=== PATIENT | male | born 1950 | race Caucasian/White ===

== ENCOUNTER 2017-04-02 15:04 | Inpatient (IN) | payer MEDICARE ==
[~2017-04-02] VITALS: Ht 177.8 cm; Wt 104.3 kg
--- NOTE | 2017-04-02 15:30 | NUR ---
[id number]: PT IS 66 YEARS OLD MALE ADMITTED ON 5150 FOR DTS. ACCORDING TO HOLD PT ATTEMPTED SUICIDE BY INGESTING WEED KILLER AND CUTTING BOTH WRISTS. PT HAS MAJOR DEPRESSION AND GALLBLADDER REMOVED. UPON FACE TO FACE ASSESSMENT PT IS A/O X4, ANXIOUS, RESTLESS, COOPERATIVE WITH STAFF. PT LIVES ALONE AND SISTER ASSISTS WITH PT'S FINANCE. PT STATED, " I WANTED TO HURT MYSELF BECAUSE I'M GOING THRU FINANCIAL PROBLEMS. PROVIDED PT WITH PT'S RIGHT BOOKLET. EXPLAINED TO PT MEAL SCHEDULES AND AIR FRESH BREAKS. MRSA DONE. SKIN ASSESSMENT DONE. WOUND CONSULT ORDERED. PT EVALUATION ORDERED. FAMILY NOTIFIED. DR. OCONNOR AND DR. DOBSON NOTIFIED ABOUT NEW ADMISSION. ALL PAPERWORK AND COMPUTER DOCUMENTATION COMPLETED. WILL ENDORSE TO INCOMING NURSE TO DOUBLE CHECK ALL COMPUTER DOCUMENTATION AND PAPERWORK. Addendum: 04/02/17 at 1739 by FENG MCLEOD RN PT DENIES SI/HI/AVH. ADVISEMENT GIVEN AND EXPLAINED TO PT.
[2017-04-02 16:00] VITALS: BP 165/100
[2017-04-02] MEDS ORDERED: MAG HYDROX/AL HYDROX/SIMETH 30 ML UDC PO PRN (16:00)
[2017-04-02] MEDS ORDERED: MAGNESIUM HYDROXIDE 30 ML UDC PO PRN (16:00)
[2017-04-02 21:05] VITALS: BP 150/99
[2017-04-02] MEDS: SERTRALINE HCL 50 MG TABLET PO SCH (21:40)
[2017-04-02] MEDS: TEMAZEPAM 7.5 MG CAPSULE PO PRN (23:36)
[2017-04-03 06:49] LABS: BASOPHILS % (AUTO) 0.4 % (0.0-2.0); EOSINOPHILS # (AUTO) 0.3 /CMM (0.0-0.7); EOSINOPHILS % (AUTO) 4.3 % (0.0-6.0); HEMATOCRIT 39 % (39-51); HEMOGLOBIN 13.5 g/dL (13.5-17.5); LYMPHOCYTES # (AUTO) 1.4 /CMM (0.8-4.8); LYMPHOCYTES % (AUTO) 22.1 % (20.0-44.0); MEAN CORPUSCULAR HEMOGLOBIN 30 PG (26.0-33.0); MEAN CORPUSCULAR HGB CONC 35 g/dl (31.0-36.0); MEAN CORPUSCULAR VOLUME 86 fL (80-96); MONOCYTES # (AUTO) 0.5 /CMM (0.1-1.30); MONOCYTES % (AUTO) 7.2 % (2.0-12.0); NEUTROPHILS # (AUTO) 4.2 /CMM (1.8-8.9); PLATELET COUNT (AUTO) 228 /CMM (150-450); RDW COEFFICIENT OF VARIATION 13.9 (11.5-15.0); RED BLOOD CELL COUNT(AUTO) 4.45 MIL/uL (4.5-6.0); WHITE BLOOD COUNT (AUTO) 6.4 K/uL (4.3-11.0)
[2017-04-03 06:59] LABS: ALBUMIN 3.5 g/dL (3.4-5.0); CALCIUM, SERUM 9.2 mg/dL (8.5-10.1); CREATININE 1.3 mg/dL (0.6-1.3); MAGNESIUM 1.4 mg/dL (1.8-2.4); PHOSPHORUS 3.7 mg/dL (2.5-4.9); POTASSIUM 2.9 mmol/L (3.5-5.1); TOTAL PROTEIN, SERUM 6.9 g/dL (6.4-8.2)
[2017-04-03] MEDS: LORAZEPAM 0.5 MG TABLET PO PRN ×2 (07:28→21:38)
--- NOTE | 2017-04-03 07:28 | NUR ---
[id number]: GAVE ATIVAN 0.5 MG PO DUE TO SEVERE ANXIETY UPON PT REQUEST AND WILL CONTINUE TO MONITOR FOR EFFECTIVENESS OF MEDICATION.
[2017-04-03 08:01] VITALS: BP 181/120
[2017-04-03] MEDS ORDERED: POTASSIUM CHLORIDE 20 MEQ POWDER PACKET PO ONE (10:00)
[2017-04-03] MEDS ORDERED: Magnesium 1GM/D5W 100ML PREMIX 100 ML IV SCH (10:00)
[2017-04-03] MEDS: AMLODIPINE BESYLATE 10 MG TABLET PO SCH (10:24)
[2017-04-03] MEDS: MAGNESIUM OXIDE 400 MG TABLET PO SCH ×2 (10:24→17:10)
--- NOTE | 2017-04-03 10:24 | NUR ---
DUE-OJ-HPSLY: DR. GOODE BALLOON SELLER ORDERED KLOR CON POWDER PKT 60 MEQ ONE TIME, NORVASC 10 MG PO DAILY AND MAG-OXIDE 800 MG BID ONE TIME.
[2017-04-03] MEDS ORDERED: POTASSIUM CHLORIDE 20 MEQ TAB.PRT.SR PO ONE (10:30)
[2017-04-03] MEDS ORDERED: MAGNESIUM OXIDE 400 MG TABLET PO SCH (10:30)
[2017-04-03] MEDS: LOSARTAN POTASSIUM 25 MG TABLET PO SCH (10:37)
--- NOTE | 2017-04-03 10:37 | NUR ---
ZAR-[id number]: DR. DOBSON ORDERED COZAAR 25 MG PO DAILY DUE TO HIGH BLOOD PRESSURE.
--- NOTE | 2017-04-03 11:29 | NUR ---
WOUND CARE CONSULT: PT PRESENTS WITH MULTIPLE LACERATIONS WHICH ARE CLOSED, PRESENT ON ADMISSION INCLUDING LEFT ANTECUBITAL LACERATION (PREVIOUSLY CLOSED WITH SUTURES), LEFT WRIST LACERATION PREVIOUSLY CLOSED WITH SURENDRA. (PT STATES SUTURES USED UNDERNEATH), AND RT WRIST LACERATION, PREVIOUSLY CLOSED WITH SUTURES AND SURENDRA. RECOMMENDATIONS MADE FOR SKIN PROTECTION AND DISCUSSED WITH NURSING STAFF. PT IS AMBULATORY AND CONTINENT. RECOMMEND SURGICAL FOLLOWUP. MD IN AGREEMENT WITH PLAN OF CARE.
--- NOTE | 2017-04-03 11:36 | NUR ---
[id number]; OVERHEAD PAGE VICTORINO FROM [employer] TO DO ECHOCARDIOGRAM ON PT. PENDING RETURN PHONE CALL.
[2017-04-03 16:07] VITALS: BP 148/93
--- NOTE | 2017-04-03 18:01 | NUR ---
[id number]: DR. DOBSON ORDERED PHYSICIAN CONSULT FOR DR. CONNORS TO COME ASSESS PT. NOTIFIED DR. CONNORS ABOUT CONSULTATION FOR THIS PT.
[2017-04-03 20:02] VITALS: BP 179/63
[2017-04-03] MEDS: SERTRALINE HCL 50 MG TABLET PO SCH (21:38)
--- NOTE | 2017-04-03 21:38 | NUR ---
GPS/RN NOTE: [id number] UNABLE TO SLEEP, ANXIOUS, LORAZEPAM 0.5 MG TAB 1 PO GIVEN.
[2017-04-04 08:00] VITALS: BP 148/98
[2017-04-04] MEDS: AMLODIPINE BESYLATE 10 MG TABLET PO SCH (08:51)
[2017-04-04] MEDS: LOSARTAN POTASSIUM 25 MG TABLET PO SCH (08:51)
[2017-04-04] MEDS ORDERED: LOSARTAN POTASSIUM 25 MG TABLET PO ONE (09:00)
[2017-04-04 16:00] VITALS: BP 129/77
--- NOTE | 2017-04-04 19:00 | NUR ---
GPS RN INITIAL NOTE PT RECEIVED IN BED, NO S/S OF RESPIRATORY DISTRESS OR SOB. SAFE ENVIRONMENT PROVIDED FREE OF CLUTTERS. .BED IN LOCKED, LOW POSITION. CALL LIGHT WITHIN EASY REACH. WILL CONTINUE TO MONITOR.
[2017-04-04 20:00] VITALS: BP 158/97
[2017-04-04] MEDS: SERTRALINE HCL 50 MG TABLET PO SCH (21:44)
--- NOTE | 2017-04-05 06:23 | NUR ---
GPS RN CLOSING NOTES PATIENT COMFORTABLY ASLEEP AND EASILY AWAKEN, HEAD OF BED ELEVATED FOR BETTER LUNG EXPANSION TOLERATING ROOM AIR 02 SAT AT 98% NOT APPARENT DISTRESS. AFEBRILE, ALL NURSING CARE NEEDS PROVIDED AND RENDERED, NEEDS ATTENDED AND ANTICIPATED, KEPT CLEAN AND DRY AND COMFORTABLE, GOOD SKIN ARE PROVIDED. FREQUENT VISUAL CHECK DONE FOR SAFETY PER GPS PROTOCOL. SAFE HAZARD FREE ENVIRONMENT PROVIDED. CALL LIGHT WITHIN EASY TO REACH, ON LOW BED AT ALL TIMES TO ENSURE SAFETY, WILL ENDORSE TO THE NEXT SHIFT CONTINUE PLAN OF CARE.
[2017-04-05 08:00] VITALS: BP 140/71
[2017-04-05] MEDS: AMLODIPINE BESYLATE 10 MG TABLET PO SCH (09:35)
[2017-04-05] MEDS: LORAZEPAM 0.5 MG TABLET PO PRN (09:35)
[2017-04-05] MEDS: LOSARTAN POTASSIUM 25 MG TABLET PO SCH (09:36)
[2017-04-05] MEDS: NYSTATIN TOP POWDER 15 GM BOTTLE TP SCH ×2 (12:51→16:21)
[2017-04-05] MEDS: NEOMY SULF/BACITRAC ZN/POLY 15 GM TUBE TP SCH (12:51)
[2017-04-05] MEDS: COD LIVER OIL/ZINC OXIDE 120 GM TUBE TP SCH (12:51)
--- NOTE | 2017-04-05 15:21 | NUR ---
SW met with the patient to check on his status. Pt. states he is doing much better but does not feel yet that he is ready for discharge. SW will follow up
[2017-04-05 16:02] VITALS: BP 131/88
--- NOTE | 2017-04-05 17:05 | NUR ---
Initial Discharge Plan: Pt. resides alone at [address] [place] [address] and wants to return when discharged. SW will follow up with pt's sister, Aubrey Camejo [phone] and psychiatrist and will arrange safe and proper discharge.
[2017-04-05 17:09] VITALS: BP 131/88
[2017-04-05 20:00] VITALS: BP 132/89
[2017-04-05] MEDS: TEMAZEPAM 7.5 MG CAPSULE PO PRN (21:30)
[2017-04-05] MEDS: SERTRALINE HCL 50 MG TABLET PO SCH (21:30)
[2017-04-06 08:00] VITALS: BP 152/98
[2017-04-06] MEDS: AMLODIPINE BESYLATE 10 MG TABLET PO SCH (08:48)
[2017-04-06] MEDS: LOSARTAN POTASSIUM 25 MG TABLET PO SCH (08:48)
[2017-04-06] MEDS: COD LIVER OIL/ZINC OXIDE 120 GM TUBE TP SCH (08:49)
[2017-04-06] MEDS: NEOMY SULF/BACITRAC ZN/POLY 15 GM TUBE TP SCH (08:49)
[2017-04-06] MEDS: NYSTATIN TOP POWDER 15 GM BOTTLE TP SCH ×2 (08:49→17:30)
[2017-04-06 16:18] VITALS: BP 152/102
[2017-04-06 20:00] VITALS: BP 159/92
[2017-04-06] MEDS: LORAZEPAM 0.5 MG TABLET PO PRN (20:06)
--- NOTE | 2017-04-06 21:20 | NUR ---
RECEIVED PT IN THE ROOM. AWAKE. SITTING UP IN CHAIR. HIGH SCHOOL SOCIAL SCIENCE TEACHER FOUND THE HANDLE OF PITCHER CLOSE TO THE SINK. PT TRY TO HIDE IT. ASK THE PT IF HE HAS ANY PLAN TO HURT HIMSELF. PT DENIES SUICIDAL IDEATION AT THIS TIME. ENCOURAGE TO VERBALIZE FEELINGS AND CONCERNS. WILL CONTINUE TO MONITOR FOR SAFETY AND BEHAVIOR [id number].
[2017-04-06] MEDS: SERTRALINE HCL 50 MG TABLET PO SCH (21:27)
[2017-04-06] MEDS: TEMAZEPAM 7.5 MG CAPSULE PO PRN (21:27)
[2017-04-07 09:00] VITALS: BP 111/61
[2017-04-07] MEDS: NYSTATIN TOP POWDER 15 GM BOTTLE TP SCH ×2 (09:21→17:07)
[2017-04-07] MEDS: NEOMY SULF/BACITRAC ZN/POLY 15 GM TUBE TP SCH (09:21)
[2017-04-07] MEDS: COD LIVER OIL/ZINC OXIDE 120 GM TUBE TP SCH (09:21)
[2017-04-07] MEDS: AMLODIPINE BESYLATE 10 MG TABLET PO SCH (09:22)
[2017-04-07] MEDS: LOSARTAN POTASSIUM 25 MG TABLET PO SCH (09:22)
[2017-04-07 16:05] VITALS: BP 141/84
[2017-04-07 20:55] VITALS: BP 149/88
[2017-04-07] MEDS: SERTRALINE HCL 50 MG TABLET PO SCH (21:20)
[2017-04-07] MEDS: TEMAZEPAM 7.5 MG CAPSULE PO PRN (21:20)
--- NOTE | 2017-04-07 21:22 | NUR ---
GPS RN NOTE: PATIENT SELECTIVE ON BODY CHECK AND PICTURE. REFUSED TO HAVE PICTURES TAKEN ON THE BUTTOCK, GROIN AND ABDOMINAL AREA. BUT ALLOWED TO HAVE PICTURE TAKEN ON THE OTHER AREA. EXPLAINED THE RISK AND BENEFITS, PATIENT STILL REFUSED. WILL CONTINUE TO MONITOR [id number] FOR SAFETY
--- NOTE | 2017-04-07 21:25 | NUR ---
GPS RN NOTE: RESTORIL 7.5MG PO GIVEN FOR INABILITY TO SLEEP AND PER PATIENT REQUEST. VITALS XH=097/88 P=65 T=98.3 R=19, WILL CONTINUE TO MONITOR [id number] FOR SAFETY
[2017-04-08 08:00] VITALS: BP 188/90
[2017-04-08] MEDS: LOSARTAN POTASSIUM 25 MG TABLET PO SCH ×2 (09:00→17:28)
[2017-04-08] MEDS: COD LIVER OIL/ZINC OXIDE 120 GM TUBE TP SCH (09:00)
[2017-04-08] MEDS: AMLODIPINE BESYLATE 10 MG TABLET PO SCH (09:00)
[2017-04-08] MEDS: NYSTATIN TOP POWDER 15 GM BOTTLE TP SCH ×2 (09:01→17:28)
[2017-04-08] MEDS: NEOMY SULF/BACITRAC ZN/POLY 15 GM TUBE TP SCH (09:02)
[2017-04-08] MEDS ORDERED: hydrALAZINE HCL 25 MG TABLET PO PRN (12:30)
--- NOTE | 2017-04-08 15:22 | NUR ---
APOLLO met with the patient and he reports that he is doing much better but does not feel yet that he is ready to go home. APOLLO will follow up
--- NOTE | 2017-04-08 15:24 | NUR ---
APOLLO spoke with Aubrey Camejo [phone] who was concerned about the patients condition and had a very long conversation with the SW stating she will need time to make his house more accessible for the patient as pt. is not able to ambulate well. Aubrey Camejo stated that pt. is able to "fool everyone" but is not doing well and hasn't been doing well. APOLLO will speak with the doctor about all the new updates.
[2017-04-08 16:00] VITALS: BP 156/92
[2017-04-08 20:17] VITALS: BP 157/100
[2017-04-08] MEDS: SERTRALINE HCL 50 MG TABLET PO SCH (21:40)
[2017-04-08] MEDS: TEMAZEPAM 7.5 MG CAPSULE PO PRN (21:40)
[2017-04-09 08:00] VITALS: BP 155/97
[2017-04-09] MEDS ORDERED: HYDROCHLOROTHIAZIDE 25 MG TABLET PO SCH (09:00)
[2017-04-09] MEDS: AMLODIPINE BESYLATE 10 MG TABLET PO SCH (09:08)
[2017-04-09] MEDS: LOSARTAN POTASSIUM 25 MG TABLET PO SCH ×2 (09:11→17:00)
[2017-04-09] MEDS: COD LIVER OIL/ZINC OXIDE 120 GM TUBE TP SCH (09:12)
[2017-04-09] MEDS: NYSTATIN TOP POWDER 15 GM BOTTLE TP SCH ×2 (09:12→17:00)
[2017-04-09] MEDS: NEOMY SULF/BACITRAC ZN/POLY 15 GM TUBE TP SCH (09:13)
--- NOTE | 2017-04-09 14:13 | NUR ---
Pt's sister Aubrey Camejo [phone] called and left a voicemail for the social studies teacher, concerned that the patient has been calling friends to have them come and pick him up. She was concerned and wanted a Head CT Scan to rule out any possible brain issues as pt. has been having slurred speech for the last 6 months and has been acting very bizarre. Aubrey Camejo also stated that pt has been having issues with his memory and thinking. She is concerned that pt. will commit suicide if she is discharged to early. SW notified MD and MD agreed to order a neuro consult and to keep him at least until the end of this week for more stabilization. Pt's sister was notified.
[2017-04-09 16:00] VITALS: BP 150/92
--- NOTE | 2017-04-09 16:06 | NUR ---
RN-CO: PER RAIL LOADER REPORT, THEY FOUND A BROKEN HANDLE OF PITCHER WITH SHARP EDGES INSIDE. PER REPORT, PATIENT PURPOSELY HIDE IT. PT REFUSED TO ANSWER QUESTIONS. WE WILL NOTIFY DR OCONNOR REGARDING THE INCIDENT AND WE WILL SUGGEST THAT A 1:1 SITTER WILL BE BENEFICIAL FOR HIS SAFETY.
[2017-04-09 19:46] VITALS: BP 175/104
[2017-04-09 20:30] VITALS: BP 145/90
[2017-04-09] MEDS: SERTRALINE HCL 50 MG TABLET PO SCH (22:14)
[2017-04-09] MEDS: TEMAZEPAM 7.5 MG CAPSULE PO PRN (22:14)
[2017-04-10] MEDS: LORAZEPAM 0.5 MG TABLET PO PRN (01:25)
[2017-04-10 07:28] LABS: BASOPHILS % (AUTO) 0.3 % (0.0-2.0); EOSINOPHILS # (AUTO) 0.2 /CMM (0.0-0.7); EOSINOPHILS % (AUTO) 3.3 % (0.0-6.0); HEMATOCRIT 40 % (39-51); HEMOGLOBIN 13.7 g/dL (13.5-17.5); LYMPHOCYTES # (AUTO) 1.4 /CMM (0.8-4.8); LYMPHOCYTES % (AUTO) 19.3 % (20.0-44.0); MEAN CORPUSCULAR HEMOGLOBIN 30 PG (26.0-33.0); MEAN CORPUSCULAR HGB CONC 35 g/dl (31.0-36.0); MEAN CORPUSCULAR VOLUME 88 fL (80-96); MONOCYTES # (AUTO) 0.5 /CMM (0.1-1.30); MONOCYTES % (AUTO) 6.8 % (2.0-12.0); NEUTROPHILS # (AUTO) 5.3 /CMM (1.8-8.9); NEUTROPHILS % (AUTO) 70.3 % (43.0-81.0); PLATELET COUNT (AUTO) 255 /CMM (150-450); RDW COEFFICIENT OF VARIATION 14.3 (11.5-15.0); RED BLOOD CELL COUNT(AUTO) 4.54 MIL/uL (4.5-6.0); WHITE BLOOD COUNT (AUTO) 7.5 K/uL (4.3-11.0)
[2017-04-10 07:56] LABS: CALCIUM, SERUM 9.2 mg/dL (8.5-10.1); CREATININE 1.2 mg/dL (0.6-1.3); POTASSIUM 3.9 mmol/L (3.5-5.1)
[2017-04-10 08:00] VITALS: BP 159/100
[2017-04-10] MEDS: AMLODIPINE BESYLATE 10 MG TABLET PO SCH (08:35)
[2017-04-10] MEDS: LOSARTAN POTASSIUM 25 MG TABLET PO SCH ×2 (08:35→17:21)
[2017-04-10] MEDS: NEOMY SULF/BACITRAC ZN/POLY 15 GM TUBE TP SCH (08:37)
[2017-04-10] MEDS: NYSTATIN TOP POWDER 15 GM BOTTLE TP SCH ×2 (08:37→17:20)
[2017-04-10] MEDS: COD LIVER OIL/ZINC OXIDE 120 GM TUBE TP SCH (08:38)
[2017-04-10] MEDS: HYDROCHLOROTHIAZIDE 25 MG TABLET PO SCH (09:51)
[2017-04-10] MEDS: hydrALAZINE HCL 25 MG TABLET PO SCH ×2 (09:52→17:21)
--- NOTE | 2017-04-10 15:44 | NUR ---
APOLLO received a voicemail from Aubrey Camejo [phone], pt's sister, who is interested in placing the patient at a correction for short term, until his house is fixed. APOLLO called to speak with Aubrey Camejo and notified her that the patient won't be leaving the hospital and will be at the hospital at least until Saturday, and APOLLO will try to find an accepting facility that will be willing to accept the patient short term with private 1:1 caregiver.
[2017-04-10 16:16] VITALS: BP 164/99
[2017-04-10] MEDS: risperiDONE 1 MG TABLET PO SCH ×2 (17:24→20:31)
[2017-04-10 19:53] VITALS: BP 139/73
[2017-04-10] MEDS: SERTRALINE HCL 50 MG TABLET PO SCH (21:42)
[2017-04-10] MEDS: TEMAZEPAM 7.5 MG CAPSULE PO PRN (22:50)
[2017-04-11 08:00] VITALS: BP 161/88
[2017-04-11] MEDS: LOSARTAN POTASSIUM 25 MG TABLET PO SCH ×2 (08:47→17:13)
[2017-04-11] MEDS: AMLODIPINE BESYLATE 10 MG TABLET PO SCH (08:47)
[2017-04-11] MEDS: HYDROCHLOROTHIAZIDE 25 MG TABLET PO SCH (08:48)
[2017-04-11] MEDS: risperiDONE 1 MG TABLET PO SCH ×2 (08:48→20:17)
[2017-04-11] MEDS: hydrALAZINE HCL 25 MG TABLET PO SCH ×2 (08:48→17:13)
[2017-04-11] MEDS: NEOMY SULF/BACITRAC ZN/POLY 15 GM TUBE TP SCH (08:53)
[2017-04-11] MEDS: COD LIVER OIL/ZINC OXIDE 120 GM TUBE TP SCH (08:53)
[2017-04-11] MEDS: NYSTATIN TOP POWDER 15 GM BOTTLE TP SCH ×2 (08:53→17:15)
--- NOTE | 2017-04-11 12:41 | NUR ---
Pt. was referred to [facility] [address] [place] [address] , [facility] [place] [address], [place] [id number] , and [place] [address]: . Will follow up
[2017-04-11 16:00] VITALS: BP 129/70
[2017-04-11 20:00] VITALS: BP 118/76
[2017-04-11] MEDS: SERTRALINE HCL 50 MG TABLET PO SCH (21:23)
--- NOTE | 2017-04-11 23:00 | NUR ---
GPS RN NOTES PATIENT REQUESTED FOR A SLEEPING PILL. AT AROUND 2100 RN GAVE HIM THE SLEEPING PILL, PATIENT SAID HE WOULD TAKE IT LATER. A COUPLE OF HOUR LATER RN OFFERED THE RESTORIL AGAIN, PATIENT DECLINED IT SAYING HE TOOK THE PILLS YESTERDAY AND HE KNOCKED OUT. RESTORIL WASTED.
[2017-04-12 08:00] VITALS: BP 130/85
[2017-04-12] MEDS: LOSARTAN POTASSIUM 25 MG TABLET PO SCH ×2 (09:05→16:10)
[2017-04-12] MEDS: hydrALAZINE HCL 25 MG TABLET PO SCH ×2 (09:06→16:10)
[2017-04-12] MEDS: HYDROCHLOROTHIAZIDE 25 MG TABLET PO SCH (09:06)
[2017-04-12] MEDS: risperiDONE 1 MG TABLET PO SCH ×2 (09:06→20:04)
[2017-04-12] MEDS: AMLODIPINE BESYLATE 10 MG TABLET PO SCH (09:07)
[2017-04-12] MEDS: COD LIVER OIL/ZINC OXIDE 120 GM TUBE TP SCH (09:09)
[2017-04-12] MEDS: NEOMY SULF/BACITRAC ZN/POLY 15 GM TUBE TP SCH (09:10)
[2017-04-12] MEDS: NYSTATIN TOP POWDER 15 GM BOTTLE TP SCH ×2 (09:10→16:11)
--- NOTE | 2017-04-12 14:50 | NUR ---
Per Phani from [facility] [address] [place] [address] , pt could be admitted if sister, Aubrey Camejo [phone] agrees to pay for a private sitter for at least 16 hours a day. APOLLO spoke with Aubrey Camejo and she agreed. APOLLO provided information to Phani and Phani said the facility will contact the sister to arrange payment. APOLLO will follow up
[2017-04-12 16:32] VITALS: BP 114/68
[2017-04-12 20:00] VITALS: BP 101/73
[2017-04-12] MEDS: SERTRALINE HCL 50 MG TABLET PO SCH (21:09)
[2017-04-13 08:27] VITALS: BP 116/72
[2017-04-13] MEDS: HYDROCHLOROTHIAZIDE 25 MG TABLET PO SCH (09:17)
[2017-04-13] MEDS: LOSARTAN POTASSIUM 25 MG TABLET PO SCH ×2 (09:18→17:36)
[2017-04-13] MEDS: risperiDONE 1 MG TABLET PO SCH ×2 (09:18→21:34)
[2017-04-13] MEDS: hydrALAZINE HCL 25 MG TABLET PO SCH ×2 (09:18→17:36)
[2017-04-13] MEDS: AMLODIPINE BESYLATE 10 MG TABLET PO SCH (09:18)
[2017-04-13] MEDS: NEOMY SULF/BACITRAC ZN/POLY 15 GM TUBE TP SCH (09:22)
[2017-04-13] MEDS: COD LIVER OIL/ZINC OXIDE 120 GM TUBE TP SCH (09:22)
[2017-04-13] MEDS: NYSTATIN TOP POWDER 15 GM BOTTLE TP SCH ×2 (09:22→17:41)
[2017-04-13 16:10] VITALS: BP 140/84
[2017-04-13 20:00] VITALS: BP 110/54
[2017-04-13 21:00] VITALS: BP 112/65
[2017-04-13] MEDS: SERTRALINE HCL 50 MG TABLET PO SCH (21:34)
--- NOTE | 2017-04-14 07:02 | NUR ---
RN GPS NOTES PT. REMAINED SITTER BED SIDE FOR SAFETY NO ACUTE DISTRESS NOTED , DENIES ANY DISCOMFORT AT THIS TIME , WILL ENDORSE TO NEXT SHIFT FOR CONTINUITY OF CARE .
[2017-04-14 08:08] VITALS: BP 141/78
[2017-04-14] MEDS: HYDROCHLOROTHIAZIDE 25 MG TABLET PO SCH (08:17)
[2017-04-14] MEDS: AMLODIPINE BESYLATE 10 MG TABLET PO SCH (08:17)
[2017-04-14] MEDS: hydrALAZINE HCL 25 MG TABLET PO SCH ×2 (08:17→16:55)
[2017-04-14] MEDS: LOSARTAN POTASSIUM 25 MG TABLET PO SCH ×2 (08:18→16:56)
[2017-04-14] MEDS: risperiDONE 1 MG TABLET PO SCH ×2 (08:18→21:30)
[2017-04-14] MEDS: NEOMY SULF/BACITRAC ZN/POLY 15 GM TUBE TP SCH (08:34)
[2017-04-14] MEDS: COD LIVER OIL/ZINC OXIDE 120 GM TUBE TP SCH (08:34)
[2017-04-14] MEDS: NYSTATIN TOP POWDER 15 GM BOTTLE TP SCH ×2 (08:34→16:56)
--- NOTE | 2017-04-14 14:34 | NUR ---
RN NOTES SPOKE TO DR. MENDIOLA AND FOLLOWED UP REGARDING THE WILMER WRIST SURENDRA AND LAC STITCHES. WHEN TO BE REMOVE. MD STATED THAT HE WILL COME LATER TO TAKE A LOOK AT IT.
[2017-04-14 16:06] VITALS: BP 130/68
[2017-04-14] MEDS: LORAZEPAM 0.5 MG TABLET PO PRN (16:54)
--- NOTE | 2017-04-14 17:00 | NUR ---
RN NOTES PT AGREED TO TAKE A SHOWER, AND AFTER HE TOOK HIS SHOWER NOTED THAT HE BECAME ANXIOUS, PRN ATIVAN GIVEN ORDERED. WILL CONTINUE TO MONITOR.
[2017-04-14 20:00] VITALS: BP 127/77
[2017-04-14] MEDS: SERTRALINE HCL 50 MG TABLET PO SCH (21:30)
--- NOTE | 2017-04-15 05:47 | NUR ---
RN GPS NOTES PT. REMAINED SITTER BED SIDE FOR SAFETY NO ACUTE DISTRESS NOTED , DENIES ANY DISCOMFORT AT THIS TIME , WILL CONTINUE TO MONITOR .
--- NOTE | 2017-04-15 07:24 | NUR ---
RN GPS NOTES PT. SLEPT 7.5 HOURS , DENIES SI HI AT THIS TIME, NO ACUTE DISTRESS NOTED, ENDORSE TO NEXT SHIFT FOR CONTINUITY OF CARE .
[2017-04-15 08:00] VITALS: BP 118/80
[2017-04-15] MEDS: hydrALAZINE HCL 25 MG TABLET PO SCH ×2 (08:13→16:35)
[2017-04-15] MEDS: LOSARTAN POTASSIUM 25 MG TABLET PO SCH ×2 (08:13→16:35)
[2017-04-15] MEDS: AMLODIPINE BESYLATE 10 MG TABLET PO SCH (08:14)
[2017-04-15] MEDS: HYDROCHLOROTHIAZIDE 25 MG TABLET PO SCH (08:14)
[2017-04-15] MEDS: risperiDONE 1 MG TABLET PO SCH ×2 (08:14→21:44)
[2017-04-15] MEDS: NEOMY SULF/BACITRAC ZN/POLY 15 GM TUBE TP SCH (08:17)
[2017-04-15] MEDS: COD LIVER OIL/ZINC OXIDE 120 GM TUBE TP SCH (08:17)
[2017-04-15] MEDS: NYSTATIN TOP POWDER 15 GM BOTTLE TP SCH ×2 (08:17→17:16)
--- NOTE | 2017-04-15 10:12 | NUR ---
APOLLO followed up with Phani from [facility] [address] [place] [address] and per Phani, pt's sister, Aubrey Camejo [phone] has not returned their call to arrange for a private sitter. Phani said he will follow up with the facility and will notify the social insurance specialist about what's next.
--- NOTE | 2017-04-15 12:54 | NUR ---
Ana Lilia from [facility] [address] [place] [address] came to see the patient as she was provided a referral and she said they can't accept the patient as they don't provide sitters and pt. is high risk.
[2017-04-15 16:00] VITALS: BP 123/74
[2017-04-15 19:31] VITALS: BP 111/72
[2017-04-15] MEDS: SERTRALINE HCL 50 MG TABLET PO SCH (21:44)
--- NOTE | 2017-04-16 06:42 | NUR ---
RN GPS NOTES PT. , DENIES SI HI AT THIS TIME NO ACUTE DISTRESS NOTED, ATTENDED ALL NEEDS ANTICIPATED ENDORSE TO NEXT SHIFT FOR CONTINUITY OF CARE .
[2017-04-16 08:00] VITALS: BP 112/76
[2017-04-16] MEDS: LOSARTAN POTASSIUM 25 MG TABLET PO SCH ×2 (08:57→17:11)
[2017-04-16] MEDS: AMLODIPINE BESYLATE 10 MG TABLET PO SCH (08:58)
[2017-04-16] MEDS: HYDROCHLOROTHIAZIDE 25 MG TABLET PO SCH (08:58)
[2017-04-16] MEDS: hydrALAZINE HCL 25 MG TABLET PO SCH ×2 (09:04→17:13)
[2017-04-16] MEDS: NEOMY SULF/BACITRAC ZN/POLY 15 GM TUBE TP SCH (09:07)
[2017-04-16] MEDS: NYSTATIN TOP POWDER 15 GM BOTTLE TP SCH ×2 (09:07→17:14)
[2017-04-16] MEDS: risperiDONE 1 MG TABLET PO SCH ×2 (09:09→20:40)
[2017-04-16] MEDS: COD LIVER OIL/ZINC OXIDE 120 GM TUBE TP SCH (09:10)
--- NOTE | 2017-04-16 12:56 | NUR ---
Pt. was also referred and [facility] [address] [place] [address] per January from admission due to patient being high risk. Addendum: 04/22/17 at 1237 by KELSEY BUSTILLOS [facility] *
[2017-04-16 16:00] VITALS: BP 137/78
--- NOTE | 2017-04-16 19:19 | NUR ---
GPS/RN NOTE: PATIENT AWAKE, ALERT, ORIENTED X3, SITTING ON THE CHAIR. HAS 1:1 SITTER FOR SAFETY. NO APPARENT DISTRESS NOTED.
[2017-04-16 20:46] VITALS: BP 129/74
[2017-04-16] MEDS: SERTRALINE HCL 50 MG TABLET PO SCH (23:29)
[2017-04-17 08:00] VITALS: BP 150/84
[2017-04-17] MEDS: LOSARTAN POTASSIUM 25 MG TABLET PO SCH ×2 (08:54→17:32)
[2017-04-17] MEDS: AMLODIPINE BESYLATE 10 MG TABLET PO SCH (08:54)
[2017-04-17] MEDS: hydrALAZINE HCL 25 MG TABLET PO SCH ×2 (08:55→17:32)
[2017-04-17] MEDS: HYDROCHLOROTHIAZIDE 25 MG TABLET PO SCH (08:55)
[2017-04-17] MEDS: risperiDONE 1 MG TABLET PO SCH ×2 (08:58→21:24)
[2017-04-17] MEDS: NYSTATIN TOP POWDER 15 GM BOTTLE TP SCH ×2 (09:08→17:33)
[2017-04-17] MEDS: NEOMY SULF/BACITRAC ZN/POLY 15 GM TUBE TP SCH (09:08)
[2017-04-17] MEDS: COD LIVER OIL/ZINC OXIDE 120 GM TUBE TP SCH (09:09)
--- NOTE | 2017-04-17 09:54 | NUR ---
APOLLO spoke with pt's sister, Aubrey Camejo [phone] who said she will call the agency to arrange the 24 hour sitter, so that the patient can be discharged to [address] [address] today. APOLLO spoke with Phani from the facility and they are able to accept as soon as the arrangement is done.
[2017-04-17] MEDS: ACETAMINOPHEN 325 MG TABLET PO PRN (11:18)
--- NOTE | 2017-04-17 15:42 | NUR ---
APOLLO received a call from Phani from [facility] [address] [place] [address] and pt. cannot be discharged there today. Per Phani, facility is going through a survey and will not be able to accept the patient now. APOLLO will follow up .
--- NOTE | 2017-04-17 15:44 | NUR ---
Phani is working with Skip Gaxiola [place] [id number]: to make arrangements for pt. to be accepted. Skip gaxiola is working with the agency to arrange for 24 hour sitter in order to accept the patient.
--- NOTE | 2017-04-17 15:45 | NUR ---
Denise from [facility] [address] [place] [address] said pt. cannot be accepted due to being high risk.
--- NOTE | 2017-04-17 15:51 | NUR ---
Pt. was referred to [place] [address] [place] [address] . Facility is arranging for a sitter and if everything works out, pt can be discharged there today or tomorrow.
[2017-04-17 16:00] VITALS: BP 125/73
[2017-04-17 20:04] VITALS: BP 152/93
[2017-04-17] MEDS: SERTRALINE HCL 50 MG TABLET PO SCH (21:20)
[2017-04-17 22:00] VITALS: BP 130/80
--- NOTE | 2017-04-18 06:49 | NUR ---
RN GPS NOTES PT. , DENIES SI HI AT THIS TIME NO ACUTE DISTRESS NOTED, ATTENDED ALL NEEDS ANTICIPATED ,, REMAINED 1:1 SITTER AT BED SIDE FOR SAFETY, ENDORSE TO NEXT SHIFT FOR CONTINUITY OF CARE .
[2017-04-18 08:00] VITALS: BP 130/72
[2017-04-18] MEDS: HYDROCHLOROTHIAZIDE 25 MG TABLET PO SCH (08:18)
[2017-04-18] MEDS: risperiDONE 1 MG TABLET PO SCH ×2 (08:19→22:05)
[2017-04-18] MEDS: hydrALAZINE HCL 25 MG TABLET PO SCH ×2 (08:19→16:26)
[2017-04-18] MEDS: AMLODIPINE BESYLATE 10 MG TABLET PO SCH (08:20)
[2017-04-18] MEDS: LOSARTAN POTASSIUM 25 MG TABLET PO SCH ×2 (08:30→16:26)
[2017-04-18] MEDS: NEOMY SULF/BACITRAC ZN/POLY 15 GM TUBE TP SCH (09:05)
[2017-04-18] MEDS: NYSTATIN TOP POWDER 15 GM BOTTLE TP SCH ×2 (09:05→16:26)
[2017-04-18] MEDS: COD LIVER OIL/ZINC OXIDE 120 GM TUBE TP SCH (09:09)
--- NOTE | 2017-04-18 11:04 | NUR ---
DR. OCONNOR GAVE AN ORDER TO D/C HOLD AND D/C TO [facility]. PT. WITHOUT DISTRESS, DENIES SUICIDAL AND HOMICIDAL. TO FOLLOW UP WITH PSYCH AND MEDICAL DOCTORS.
[2017-04-18] MEDS: ACETAMINOPHEN 325 MG TABLET PO PRN (11:44)
--- NOTE | 2017-04-18 11:45 | NUR ---
SUPREME COURT JUSTICE-NOTES PATIENT C/O HEADACHE REQUESTING FOR TYLENOL, TYLENOL 650MG P.O GIVEN ORDERED. WILL CONT. 1:1 MONITORING FOR SAFETY.
--- NOTE | 2017-04-18 11:45 | NUR ---
APOLLO followed up with Rashel from [address] [address] and they still have no confirmation from the caregiving agency.
--- NOTE | 2017-04-18 11:46 | NUR ---
APLOLO spoke with Phani from [facility] [address] [place] [address] and if pt. does not get accepted anywhere and stays in the hospital over the weekend, [facility] will most likely accept him on Saturday.
--- NOTE | 2017-04-18 11:47 | NUR ---
APOLLO spoke with Aubrey Camejo [phone] who is notified of all the new updates and is waiting to hear confirmation about which facility the patient is able to discharge to.
--- NOTE | 2017-04-18 13:02 | NUR ---
Pt. was also referred to [facility] [address], [place] [address] . Geo from the facility will be in touch with a decision. Addendum: 04/22/17 at 1236 by KELSEY BUSTILLOS La from the facility notified that pt. cannot be accepted to their facility.
--- NOTE | 2017-04-18 14:01 | NUR ---
APOLLO spoke to La from [facility] ([address], [place] [address] ) who stated that they cannot accept the patient right now due to no bed availability and that SW may follow up next week to see if there is availability however, she wasn't sure if there will be.
--- NOTE | 2017-04-18 14:14 | NUR ---
DR. OCONNOR RESCINDED THE D/C ORDER BECAUSE THE FACILITY IS NOT ACCEPTING HIM TODAY. AND DR. GABRIEL PLACED PT. ON 30 DAY HOLD.
[2017-04-18 16:00] VITALS: BP 147/86
[2017-04-18 20:00] VITALS: BP 126/92
[2017-04-18] MEDS: TEMAZEPAM 7.5 MG CAPSULE PO PRN (22:06)
[2017-04-18] MEDS: SERTRALINE HCL 50 MG TABLET PO SCH (22:06)
[2017-04-19 08:00] VITALS: BP 120/77
[2017-04-19] MEDS: HYDROCHLOROTHIAZIDE 25 MG TABLET PO SCH (08:23)
[2017-04-19] MEDS: risperiDONE 1 MG TABLET PO SCH ×2 (08:23→21:15)
[2017-04-19] MEDS: LOSARTAN POTASSIUM 25 MG TABLET PO SCH ×2 (08:23→16:16)
[2017-04-19] MEDS: hydrALAZINE HCL 25 MG TABLET PO SCH ×2 (08:23→16:16)
[2017-04-19] MEDS: AMLODIPINE BESYLATE 10 MG TABLET PO SCH (08:24)
[2017-04-19] MEDS: NYSTATIN TOP POWDER 15 GM BOTTLE TP SCH (08:31)
[2017-04-19] MEDS: NEOMY SULF/BACITRAC ZN/POLY 15 GM TUBE TP SCH (08:31)
[2017-04-19] MEDS: COD LIVER OIL/ZINC OXIDE 120 GM TUBE TP SCH (08:32)
--- NOTE | 2017-04-19 09:37 | NUR ---
SHANKAR from [facility] ([address] [place] [address] ) stated that he has called the caregiving agency and left a message for them. He will follow up and let the school social worker know if they are able to sort out the caregiving issue.
--- NOTE | 2017-04-19 12:20 | NUR ---
Per Phani from [facility] ([address], [place] )) they are able to accept the patient Saturday after 5pm as they have surveyors. Phani to contact the patient's sister Aubrey Camejo ([phone]) to coordinate caregiving services. APOLLO tried to contact the patient's sister to notify her but she did not answer and person who answered the phone (Evonne) stated she will pass on APOLLO's call back details.
--- NOTE | 2017-04-19 12:51 | NUR ---
APOLLO spoke to the patient's sister (zack Camejo ([phone]) and informed her that [facility] ([address] [place] [address] ) is able to take the patient Saturday after 5pm and that Phani from the facility will be contacting her to discuss the caregiving. She stated she is agreeable with the plan to discharge the patient there. APOLLO informed her that they will also be referring patient to other facilities in the case that [facility] falls through.
--- NOTE | 2017-04-19 13:30 | NUR ---
decontamination worker faxed initial review packet to: [facility] ( / ) [address] [place] [address] Rogelio Amado (phone: [phone] ) [address] [facility] [address] [facility] (phone: [phone]/ ) [address] [place] [address] decontamination worker will follow-up. Addendum: 04/19/17 at 1422 by GEOVANNY BUSTILLOS [facility] )
--- NOTE | 2017-04-19 13:37 | NUR ---
pattern worker spoke to Inge from [facility] ( / ) [address] [place] [address] and stated that they could not accept the patient as they don not have any male beds available.
--- NOTE | 2017-04-19 15:53 | NUR ---
medical case worker spoke to Stephon stewart [facility] ( / ) [address] [place] [address] who stated that they are unable to accept the patient at the moment due to his suicidal ideations and cannot accommodate a 1:1 sitter.
--- NOTE | 2017-04-19 15:55 | NUR ---
grey roll worker spoke to Shivani from [facility] (phone: [phone]/ ) [address] [place] [address] who stated that they could not accept the patient at the moment as they do not have any male beds available. Shivani stated that she would follow-up on Saturday and notify executive secretary social welfare if a bed became available. However, she stated that there is no guarantee that they would accept the patient and at the moment might not be able to accommodate a 1:1 sitter. grey roll worker will follow-up.
[2017-04-19 16:05] VITALS: BP 124/74
[2017-04-19] MEDS: ACETAMINOPHEN 325 MG TABLET PO PRN (16:16)
--- NOTE | 2017-04-19 16:17 | NUR ---
GPS RN: TYLENOL 650MG ADMINISTERED PER PATIENT'S REQUEST FOR C/O HEADACHE 03/23. NOT IN DISTRESS, VSS, CONTINUE TO MONITOR.
[2017-04-19 20:00] VITALS: BP 117/70
[2017-04-19] MEDS: SERTRALINE HCL 50 MG TABLET PO SCH (21:15)
[2017-04-20 08:00] VITALS: BP 123/76
[2017-04-20] MEDS: risperiDONE 1 MG TABLET PO SCH ×2 (08:37→21:19)
[2017-04-20] MEDS: HYDROCHLOROTHIAZIDE 25 MG TABLET PO SCH (08:37)
[2017-04-20] MEDS: LOSARTAN POTASSIUM 25 MG TABLET PO SCH ×2 (08:37→16:36)
[2017-04-20] MEDS: AMLODIPINE BESYLATE 10 MG TABLET PO SCH (08:37)
[2017-04-20] MEDS: hydrALAZINE HCL 25 MG TABLET PO SCH ×2 (08:38→16:36)
[2017-04-20] MEDS: NEOMY SULF/BACITRAC ZN/POLY 15 GM TUBE TP SCH (08:40)
[2017-04-20] MEDS: ACETAMINOPHEN 325 MG TABLET PO PRN (15:16)
--- NOTE | 2017-04-20 15:18 | NUR ---
GPS RN: TYLENOL 650MG ADMINISTERED PER PATIENT'S REQUEST FOR C/O HEADACHE 03/23. PATIENT IS NOT IN DISTRESS, VSS, CONTINUE TO MONITOR.
[2017-04-20 16:00] VITALS: BP 111/68
[2017-04-20 20:25] VITALS: BP 123/70
[2017-04-20] MEDS: SERTRALINE HCL 50 MG TABLET PO SCH (21:26)
[2017-04-20] MEDS: TEMAZEPAM 7.5 MG CAPSULE PO PRN (21:27)
[2017-04-21 08:18] VITALS: BP 141/84
[2017-04-21] MEDS: LOSARTAN POTASSIUM 25 MG TABLET PO SCH ×2 (08:50→16:24)
[2017-04-21] MEDS: hydrALAZINE HCL 25 MG TABLET PO SCH ×2 (08:50→16:25)
[2017-04-21] MEDS: HYDROCHLOROTHIAZIDE 25 MG TABLET PO SCH (08:51)
[2017-04-21] MEDS: AMLODIPINE BESYLATE 10 MG TABLET PO SCH (08:51)
[2017-04-21] MEDS: risperiDONE 1 MG TABLET PO SCH ×2 (08:52→21:00)
[2017-04-21] MEDS: NEOMY SULF/BACITRAC ZN/POLY 15 GM TUBE TP SCH (08:54)
[2017-04-21 16:00] VITALS: BP 127/75
[2017-04-21] MEDS: ACETAMINOPHEN 325 MG TABLET PO PRN (16:28)
--- NOTE | 2017-04-21 16:28 | NUR ---
[id number]: GAVE TYLENOL 650 MG PO DUE TO GENERALIZED PAIN 5/10 UPON PT REQUEST AND WILL CONTINUE TO MONITOR FOR EFFECTIVENESS OF MEDICATION
[2017-04-21 19:49] VITALS: BP 130/71
--- NOTE | 2017-04-21 21:15 | NUR ---
GPS RN: PATIENT IN THE ROOM, ASLEEP. WILL ADMINISTER MEDICATIONS ONCE PATIENT IS AWAKE.
[2017-04-21] MEDS: SERTRALINE HCL 50 MG TABLET PO SCH (22:00)
--- NOTE | 2017-04-21 22:15 | NUR ---
GPS RN: PATIENT IN THE ROOM, ASLEEP. WILL ADMINISTER MEDICATIONS SOON PATIENT IS AWAKE.
--- NOTE | 2017-04-21 23:00 | NUR ---
GPS RN: PATIENT IN THE ROOM, STILL ASLEEP. 1:1 SITTER IN CLOSE PROXIMITY. WILL MONITOR THE PATIENT.
--- NOTE | 2017-04-22 01:29 | NUR ---
GPS RN: PATIENT IN THE ROOM, ASLEEP. NO COMPLAINS THIS TIME.
[2017-04-22] MEDS: risperiDONE 1 MG TABLET PO SCH ×2 (01:45→08:01)
[2017-04-22] MEDS: SERTRALINE HCL 50 MG TABLET PO SCH (01:47)
[2017-04-22] MEDS: TEMAZEPAM 7.5 MG CAPSULE PO PRN (01:47)
[2017-04-22 08:00] VITALS: BP 121/84
[2017-04-22] MEDS: LOSARTAN POTASSIUM 25 MG TABLET PO SCH ×2 (08:02→16:22)
[2017-04-22] MEDS: HYDROCHLOROTHIAZIDE 25 MG TABLET PO SCH (08:02)
[2017-04-22] MEDS: AMLODIPINE BESYLATE 10 MG TABLET PO SCH (08:02)
[2017-04-22] MEDS: NEOMY SULF/BACITRAC ZN/POLY 15 GM TUBE TP SCH (08:03)
[2017-04-22] MEDS: hydrALAZINE HCL 25 MG TABLET PO SCH ×2 (08:03→16:22)
--- NOTE | 2017-04-22 09:26 | NUR ---
[id number]: PT REFUSED INFLUENZA ON ADMISSION BY WAS PLACED BY MISTAKE TO BE ADMINISTER. PT REFUSED INFLUENZA VACCINE TO BE ADMINISTER.
[2017-04-22] MEDS: ACETAMINOPHEN 325 MG TABLET PO PRN (09:37)
--- NOTE | 2017-04-22 09:37 | NUR ---
[id number]: GAVE TYLENOL 650 MG PO DUE TO GENERALIZED PAIN 5/10 UPON PT REQUEST AND WILL CONTINUE TO MONITOR FOR EFFECTIVENESS OF MEDICATION
--- NOTE | 2017-04-22 12:35 | NUR ---
APOLLO confirmed with Phani from [facility] ([address], [place] that pt. can be transferred there today and they are able to accept. Ambulance is scheduled for 5:00PM.
--- NOTE | 2017-04-22 12:39 | NUR ---
Discharge note : Pt. will be discharged to [address] today around 5PM [facility]. SW spoke with Aubrey Camejo [phone] prior to today several times and she has agreed and arranged a 1:1 sitter at the facility for being high risk. SW left a voicemail again for Aubrey Camejo confirming discharge today. Facility has been provided the discharge instructions(report) already and discharge paperwork has been signed. Pt. is calm and cooperative and agrees with the discharge plan himself. At this time he is still denying suicidal/homicidal ideations and hallucinations. Pt will follow up with Dr. Davila on Saturday, April 29, at 9:30 AM to discuss alcohol dependency.
[2017-04-22 16:00] VITALS: BP 139/78
[2017-04-22 16:22] VITALS: BP 139/78
--- NOTE | 2017-04-22 18:00 | NUR ---
[id number]: PT IS 66 YEARS OLD FEMALE DISCHARGE TO [facility]. [place], [place]. IN STABLE CONDITION. COMPLIANT WITH MEDICATIONS, COOPERATIVE WITH TREATMENT PLANS. PT DENIES SI/HI AND INSTRUCTED TO GO TO THE CLOSEST ER IF DEVELOPING SI/HI. BEHAVIOR IMPROVED, PSYCHIATRIC TX PLANS MET, MEDICAL TX PLANS DEFERRED FOR CONTINUAL MONITORING. EDUCATED PT ABOUT AFTER CARE PLAN AND COPY PROVIDED. RETURNED PERSONAL BELONGINGS TO PT. MEDICATIONS RECONCILED WITH DR. GABRIEL AND NOE MADRID. REPORT GIVEN TO SELMA IN [facility]. PT SIGNED DISCHARGE PAPERWORK. SKIN ASSESSMENT DONE. PT LEFT THE UNIT ACCOMPANIED BY STAFF AMBULANCE.
== END 2017-04-22 18:00 | DRG 885 ==
LOC: GPS 15:04
PROVIDERS: ADMIT Psychiatry & Neurology Psychiatry; ATTEND Psychiatry & Neurology Psychiatry
DX: F33.2 Major depressive disorder, recurrent severe without psychotic features (principal); I10 Essential (primary) hypertension; T14.91 Suicide attempt; F29 Unspecified psychosis not due to a substance or known physiological condition; K80.20 Calculus of gallbladder without cholecystitis without obstruction; X78.1XXD Intentional self-harm by knife, subsequent encounter; F41.9 Anxiety disorder, unspecified; R47.1 Dysarthria and anarthria
CPT/HCPCS: 36415; 70450-TC; 80048-TC; 80053-TC; 80061-TC; 82962-TC; 83735-TC; 84100-TC; 85025-TC; 87081-TC; 93307-TC; 97001-TC; A6402; A6403; J3475; Z7610

== ENCOUNTER 2017-05-20 17:11 | Inpatient (IN) | payer MEDICARE ==
[~2017-05-20] VITALS: Ht 170.2 cm; Wt 97.5 kg
--- NOTE | 2017-05-20 17:20 | NUR ---
PT KENDELL FROM SNF TO ER BED 09. WAS SENT BY PMD FOR ABLAB. BUN/CREA IS ELAVATED. PT C/O GENERALIZED BODY ACHES. GOWNED AND PLACED ON MONITOR. NAD NOTED. AWAITING MD NARAYANAN.
--- NOTE | 2017-05-20 17:30 | NUR ---
DR HART AT BEDSIDE FOR EVAL.
--- NOTE | 2017-05-20 17:41 | NUR ---
IV LINE STARTED BLOOD DRAWN AND SENT TO LAB.
[2017-05-20 17:52] LABS: BASOPHILS # (AUTO) 0.1 /CMM (0.0-0.2); EOSINOPHILS # (AUTO) 0.2 /CMM (0.0-0.7); EOSINOPHILS % (AUTO) 1.6 % (0.0-6.0); HEMATOCRIT 39 % (39-51); HEMOGLOBIN 13.3 g/dL (13.5-17.5); LYMPHOCYTES # (AUTO) 1.6 /CMM (0.8-4.8); MEAN CORPUSCULAR HEMOGLOBIN 30 PG (26.0-33.0); MEAN CORPUSCULAR HGB CONC 34 g/dl (31.0-36.0); MEAN CORPUSCULAR VOLUME 87 fL (80-96); MONOCYTES # (AUTO) 0.8 /CMM (0.1-1.30); MONOCYTES % (AUTO) 7.4 % (2.0-12.0); NEUTROPHILS # (AUTO) 8.5 /CMM (1.8-8.9); PLATELET COUNT (AUTO) 207 /CMM (150-450); RDW COEFFICIENT OF VARIATION 12.6 (11.5-15.0); RED BLOOD CELL COUNT(AUTO) 4.47 MIL/uL (4.5-6.0); WHITE BLOOD COUNT (AUTO) 11.2 K/uL (4.3-11.0)
[2017-05-20 17:59] LABS: INR 1.06 (0.87-1.13)
[2017-05-20 18:06] LABS: CALCIUM, SERUM 8.9 mg/dL (8.5-10.1); CREATININE 2.3 mg/dL (0.6-1.3); POTASSIUM 2.9 mmol/L (3.5-5.1)
[2017-05-20 18:09] LABS: MAGNESIUM 1.9 mg/dL (1.8-2.4); PHOSPHORUS 4.4 mg/dL (2.5-4.9)
[2017-05-20 18:12] LABS: ALBUMIN 3.4 g/dL (3.4-5.0); BILIRUBIN,DIRECT 0.2 mg/dL (0.0-0.2); BILIRUBIN,TOTAL 1.1 mg/dL (0.2-1.0); TOTAL PROTEIN, SERUM 8.1 g/dL (6.4-8.2)
[2017-05-20] MEDS ORDERED: POTASSIUM CHLORIDE 10 MEQ/50 ML PREMIXED IVPB FOR PERIPHERAL LINE IV ONE (18:30)
[2017-05-20] MEDS ORDERED: IV NS 0.9% 1,000 ML BAG IV ONE (18:30)
[2017-05-20] MEDS ORDERED: POTASSIUM CL. PREMIX PERIPHER. 50 ML ONE (18:37)
[2017-05-20 18:41] LABS: APPEARANCE,URINE Clear (CLEAR); BILIRUBIN,URINE Negative (NEGATIVE); BLOOD, URINE Small Ery/uL (NEGATIVE); COLOR,URINE Yellow (YELLOW); KETONES,URINE Negative (NEGATIVE); LEUKOCYTE ESTERASE ,URINE Small (NEGATIVE); NITRITE, URINE Positive (NEGATIVE); PH,URINE 5.5 (5.0-8.0); PROTEIN,URINE Trace mg/dl (NEGATIVE); UGLUCOSE Negative (NEGATIVE)
[2017-05-20 19:02] LABS: RBC,URINE 21-50 /HPF (0-2); WBC,URINE 51-80 /HPF (0-3)
[2017-05-20 19:03] LABS: BACTERIA,URINE Many /HPF (None Seen); MUCUS,URINE Few /LPF (None Seen); SQUAMOUS EPITHELIAL CELL,UR Rare /HPF (None Seen); URINE AMORPHOUS URATE Moderate /HPF (None Seen)
[2017-05-20] MEDS ORDERED: POTASSIUM CHLORIDE 20 MEQ TAB.PRT.SR PO ONE ×2 (19:30→19:56)
[2017-05-20] MEDS ORDERED: CEFTRIAXONE 1 G in IV D5W 50 ML IV ONE (19:30)
[2017-05-20] MEDS ORDERED: HYDROCODONE/APAP 5/325MG 1 EACH TABLET PO PRN (19:30)
[2017-05-20] MEDS ORDERED: Z GUARD REMEDY 2 OZ OINT TP PRN (19:30)
[2017-05-20] MEDS ORDERED: ONDANSETRON HCL/PF 4 MG/2 ML VIAL IVP PRN (19:30)
[2017-05-20] MEDS ORDERED: ACETAMINOPHEN 325 MG TABLET PO PRN (19:30)
[2017-05-20] MEDS ORDERED: ZOLPIDEM TARTRATE 5 MG TABLET PO PRN (19:30)
--- NOTE | 2017-05-20 19:51 | NUR ---
REPORT GIVEN TO NOEL/RN MS FLOOR ON BEHALF OF PRIMARY NURSE DWAYNE.
[2017-05-20] MEDS ORDERED: CEFTRIAXONE 1GM BAG (ER ONLY) 50 ML IV ONE (19:56)
--- NOTE | 2017-05-20 20:06 | NUR ---
RN ADMITTING NOTES RECEIVED REPORT FROM PROFESSOR OF ENVIRONMENTAL ENGINEERINGBRENDA. Pt ARRIVED ONTO FLOOR VIA GURNEY. Pt IS AWAKE & ALERT, A/OX3, VERBAL, ABLE TO MAKE NEEDS KNOWN. NO S/S OF ACUTE DISTRESS OR SOB NOTED. NO SIGNS OF PAIN. IV ACCESS ON LAC #18G. SAFETY MEASURES IN PLACE. BED LOW, LOCKED, HOB ELEVATED, SIDE RAILS UP, CALL LIGHT AND BEDSIDE TABLE WITHIN REACH. WILL CONTINUE TO MONITOR Pt THROUGHOUT THE NIGHT.
[2017-05-20 20:10] VITALS: BP 122/73
[2017-05-20] MEDS: IV D5/0.45 NACL 1,000 ML IV PRN (21:03)
--- NOTE | 2017-05-21 06:35 | NUR ---
RN CLOSING NOTES NO SIGNIFICANT CHANGES IN Pt's CONDITION DURING SHIFT. NO S/S OF ACUTE DISTRESS OR SOB NOTED DURING THE NIGHT. ALL NEEDS MET AND ATTENDED TO. SAFETY MEASURES CARRIED OUT. WILL ENDORSE TO DAYSHIFT RN FOR Pt's PINO.
[2017-05-21 06:40] LABS: BASOPHILS % (AUTO) 0.3 % (0.0-2.0); EOSINOPHILS # (AUTO) 0.2 /CMM (0.0-0.7); EOSINOPHILS % (AUTO) 1.7 % (0.0-6.0); HEMATOCRIT 34 % (39-51); LYMPHOCYTES % (AUTO) 10.3 % (20.0-44.0); MEAN CORPUSCULAR HEMOGLOBIN 31 PG (26.0-33.0); MEAN CORPUSCULAR HGB CONC 35 g/dl (31.0-36.0); MEAN CORPUSCULAR VOLUME 88 fL (80-96); MONOCYTES # (AUTO) 0.7 /CMM (0.1-1.30); MONOCYTES % (AUTO) 6.6 % (2.0-12.0); NEUTROPHILS % (AUTO) 81.1 % (43.0-81.0); PLATELET COUNT (AUTO) 165 /CMM (150-450); RDW COEFFICIENT OF VARIATION 13.6 (11.5-15.0); RED BLOOD CELL COUNT(AUTO) 3.91 MIL/uL (4.5-6.0); WHITE BLOOD COUNT (AUTO) 9.9 K/uL (4.3-11.0)
[2017-05-21 06:48] LABS: CALCIUM, SERUM 8.4 mg/dL (8.5-10.1); CREATININE 1.6 mg/dL (0.6-1.3); MAGNESIUM 1.8 mg/dL (1.8-2.4); PHOSPHORUS 3.3 mg/dL (2.5-4.9); TOTAL PROTEIN, SERUM 7.2 g/dL (6.4-8.2)
[2017-05-21 06:50] LABS: POTASSIUM 2.6 mmol/L (3.5-5.1)
--- NOTE | 2017-05-21 07:01 | NUR ---
CRITICAL LAB POTASSIUM: 2.5. SPOKE WITH ON-CALL DESMOND MADRID NP. ORDERED K-DUR PO 60MG
--- NOTE | 2017-05-21 07:30 | NUR ---
MS RN OPENING RECEIVED PATIENT A/OX3 DENIES SOB, DIFFICULTY BREATHING OR PAIN AT THIS TIME. ALL NEEDS IN REACH AND PATIENT STATES NO NEEDS AT THIS TIME. IVF RUNNING ORDERED AND BED LOWERED AND LOCKED, RAILS UPX3 FOR SAFETY AND BED ALARM ON. PATIENT AWARE PENDING PHYSICAL THERAPY AND SOCIAL SERVICE EVAL. WILL ROUND Q2H OR LESS PER NEEDS.
[2017-05-21 08:00] VITALS: BP 108/72
[2017-05-21] MEDS ORDERED: POTASSIUM CHLORIDE 20 MEQ TAB.PRT.SR PO SCH (08:00)
--- NOTE | 2017-05-21 08:15 | NUR ---
MS RN NOTES DR DOBSON AT BEDSIDE. PATIENT STABLE AT THIS TIME
--- NOTE | 2017-05-21 08:30 | NUR ---
MS RN NOTES CONFIRMED WITH DR DOBSON TO DC 20MEQ K DUR X3 DOSES AND KEEP HIS ORDER OF 40MEQ X2 DOSES
[2017-05-21] MEDS ORDERED: TEMA15CA PO (08:34)
[2017-05-21] MEDS ORDERED: LORA0.5T PO (08:34)
[2017-05-21] MEDS ORDERED: AMLO10TA2 PO (08:34)
[2017-05-21] MEDS ORDERED: SENN8.6T6 PO (08:34)
[2017-05-21] MEDS ORDERED: HYDR-4076 PO ×2 (08:34→11:16)
[2017-05-21] MEDS ORDERED: LOSA50TA21 PO (08:34)
[2017-05-21] MEDS ORDERED: HYDR25TA4 PO (08:34)
[2017-05-21] MEDS: POTASSIUM CHLORIDE 20 MEQ TAB.PRT.SR PO SCH ×2 (08:53→10:39)
--- NOTE | 2017-05-21 09:34 | NUR ---
MS RN NOTES CALLED [facility] LEFT MESSAGE FOR CONFIRMATION OF PATIENT RESIDENCY THERE AND TO TRY AND GET A MED RECON LIST OF CURRENT MEDICATIONS PATIENT IS NOT ABLE TO REMEMBER AND MEDICATIONS. MD IS AWARE OF THE WRIST LAC. NNO
[2017-05-21] MEDS: IV D5/0.45 NACL 1,000 ML IV PRN (10:39)
[2017-05-21] MEDS ORDERED: DOCU-25 PO (11:16)
[2017-05-21] MEDS ORDERED: ACET-868 PO (11:16)
[2017-05-21] MEDS ORDERED: RISP0.5T2 PO (11:16)
[2017-05-21] MEDS ORDERED: SERT100T PO (11:16)
[2017-05-21] MEDS ORDERED: MAGN400O6 PO (11:16)
[2017-05-21] MEDS ORDERED: MAGN2400 PO (11:16)
[2017-05-21] MEDS ORDERED: BISA-79 PO (11:16)
--- NOTE | 2017-05-21 11:21 | NUR ---
MS RN NOTES NOTIFIED DR DOBSON PATIENT MED RECON IS AVAILABLE
[2017-05-21] MEDS ORDERED: SENNOSIDES 8.6 MG TABLET PO SCH (11:30)
[2017-05-21] MEDS ORDERED: LORAZEPAM 0.5 MG TABLET PO PRN (11:30)
[2017-05-21] MEDS ORDERED: MAGNESIUM HYDROXIDE 30 ML UDC PO PRN (11:30)
[2017-05-21] MEDS: AMLODIPINE BESYLATE 10 MG TABLET PO SCH (11:30)
[2017-05-21] MEDS: hydrALAZINE HCL 25 MG TABLET PO SCH ×2 (11:30→16:55)
[2017-05-21] MEDS ORDERED: MAGNESIUM HYDROXIDE 30 ML UDC PO SCH (11:30)
[2017-05-21] MEDS ORDERED: hydrALAZINE HCL 25 MG TABLET PO PRN (11:30)
--- NOTE | 2017-05-21 12:04 | NUR ---
MS RN NOTES HOLDING SOME OF PATIENTS BP MEDS DUE TO LOW BP THIS AM. GIVING HYDRODIURIL AND WILL RE EVALUATE
[2017-05-21 12:14] VITALS: BP 118/69
[2017-05-21] MEDS: HYDROCHLOROTHIAZIDE 25 MG TABLET PO SCH (12:27)
[2017-05-21] MEDS: DOCUSATE SODIUM 100 MG CAPSULE PO SCH ×2 (12:27→16:54)
--- NOTE | 2017-05-21 15:35 | NUR ---
MS RN NOTES DR WAYLON FELIX AT BEDSIDE
[2017-05-21 16:00] VITALS: BP 121/77
[2017-05-21] MEDS: LOSARTAN POTASSIUM 50 MG TABLET PO SCH (16:54)
[2017-05-21] MEDS: CEFTRIAXONE 1 G in IV D5W 50 ML IV SCH (17:00)
--- NOTE | 2017-05-21 19:28 | NUR ---
MS RN CLOSING PATIENT STABLE NO COMPLICATIONS. PATIENT STATES DEPRESSED AND NOT WANTING TO EAT ANY MEALS. PENDING PSYCH EVAL FOR PATIENT. ALL DUE MEDS GIVEN AND ALL NEEDS MET. PATIENT CARE ENDORSED TO RN FOR PINO. PATIENT AWARE NEEDING URINE SAMPLE. DOES NOT WANT CATH ORDERED FOR SAMPLE AND WANTS TO STILL TRY AND GET IN URINAL. ENDORSED TO RN
--- NOTE | 2017-05-21 19:40 | NUR ---
RN OPENING NOTES RECEIVED REPORT FROM DAYSHIFT RNSTEPHIE. FOUND Pt AWAKE, RESTING IN BED. NO S/S OF ACUTE DISTRESS OR SOB NOTED. EQUAL CHEST RISE AND FALL. NO C/O PAIN. Pt IS A/OX2-3, WITH SOME CONFUSION, VERBAL, ABLE TO MAKE NEEDS KNOWN. IV ACCESS LAC #18G, D5 1/2NS@75ML/HR. SAFETY MEASURES IN PLACE. BED LOW, LOCKED, HOB ELEVATED, SIDE RAILS UP, CALL LIGHT AND BEDSIDE TABLE WITHIN REACH. WILL CONTINUE TO MONITOR Pt THROUGHOUT THE NIGHT.
[2017-05-21 20:00] VITALS: BP 104/72
[2017-05-21 21:00] VITALS: BP 104/72
[2017-05-21] MEDS: SENNOSIDES 8.6 MG TABLET PO SCH (21:57)
[2017-05-21] MEDS: SERTRALINE HCL 50 MG TABLET PO SCH (21:57)
[2017-05-21] MEDS: risperiDONE 0.25 MG TABLET PO SCH (21:57)
[2017-05-21] MEDS ORDERED: TEMAZEPAM 15 MG CAPSULE PO PRN (22:00)
[2017-05-22 06:43] LABS: BASOPHILS % (AUTO) 0.3 % (0.0-2.0); EOSINOPHILS # (AUTO) 0.2 /CMM (0.0-0.7); EOSINOPHILS % (AUTO) 2.1 % (0.0-6.0); HEMATOCRIT 34 % (39-51); HEMOGLOBIN 11.6 g/dL (13.5-17.5); LYMPHOCYTES # (AUTO) 1.1 /CMM (0.8-4.8); LYMPHOCYTES % (AUTO) 11.9 % (20.0-44.0); MEAN CORPUSCULAR HEMOGLOBIN 30 PG (26.0-33.0); MEAN CORPUSCULAR HGB CONC 35 g/dl (31.0-36.0); MEAN CORPUSCULAR VOLUME 86 fL (80-96); MONOCYTES # (AUTO) 0.7 /CMM (0.1-1.30); MONOCYTES % (AUTO) 7.6 % (2.0-12.0); NEUTROPHILS # (AUTO) 7.4 /CMM (1.8-8.9); NEUTROPHILS % (AUTO) 78.1 % (43.0-81.0); PLATELET COUNT (AUTO) 170 /CMM (150-450); RDW COEFFICIENT OF VARIATION 13.7 (11.5-15.0); WHITE BLOOD COUNT (AUTO) 9.5 K/uL (4.3-11.0)
--- NOTE | 2017-05-22 06:56 | NUR ---
RN CLOSING NOTES NO SIGNIFICANT CHANGES IN Pt's CONDITION. NO S/S OF ACUTE DISTRESS OR SOB NOTED DURING THE NIGHT. ALL NEEDS MET AND ATTENDED TO. SAFETY MEASURES IN PLACE. WILL ENDORSE TO DAYSHIFT RN FOR Pt's PINO.
--- NOTE | 2017-05-22 07:30 | NUR ---
MS RN NOTES PATIENT A/OX3. NO DISTRESS OR SOB. IV IS PATENT AND INTACT. CALL LIGHT WITHIN REACH. BED IN LOW LOCKED POSITION. WILL CONTINUE TO MONITOR THROUGHOUT SHIFT.
[2017-05-22 07:36] LABS: ALBUMIN 2.9 g/dL (3.4-5.0); CALCIUM, SERUM 8.8 mg/dL (8.5-10.1); CREATININE 1.3 mg/dL (0.6-1.3); MAGNESIUM 1.5 mg/dL (1.8-2.4); TOTAL PROTEIN, SERUM 7.4 g/dL (6.4-8.2)
[2017-05-22 08:00] VITALS: BP 124/73
[2017-05-22] MEDS ORDERED: BISACODYL (5 MG) 5 MG TABLET.DR PO SCH (09:00)
[2017-05-22] MEDS ORDERED: BISACODYL (5 MG) 5 MG TABLET.DR PO PRN (09:00)
[2017-05-22] MEDS: DOCUSATE SODIUM 100 MG CAPSULE PO SCH ×2 (09:16→17:32)
[2017-05-22] MEDS: HYDROCHLOROTHIAZIDE 25 MG TABLET PO SCH (09:17)
[2017-05-22] MEDS: risperiDONE 0.25 MG TABLET PO SCH ×2 (09:17→21:26)
[2017-05-22] MEDS: AMLODIPINE BESYLATE 10 MG TABLET PO SCH (09:17)
[2017-05-22] MEDS: hydrALAZINE HCL 25 MG TABLET PO SCH ×2 (09:18→17:00)
[2017-05-22] MEDS: LOSARTAN POTASSIUM 50 MG TABLET PO SCH ×2 (09:18→17:00)
[2017-05-22] MEDS ORDERED: POTASSIUM CHLORIDE 20 MEQ TAB.PRT.SR PO ONE (11:30)
[2017-05-22] MEDS: Magnesium 1GM/D5W 100ML PREMIX 100 ML IV SCH ×2 (12:13→15:00)
[2017-05-22] MEDS: POTASSIUM CHLORIDE 20 MEQ TAB.PRT.SR PO SCH (12:25)
[2017-05-22 16:00] VITALS: BP 108/68
[2017-05-22] MEDS: CEFTRIAXONE 1 G in IV D5W 50 ML IV SCH (17:30)
--- NOTE | 2017-05-22 18:59 | NUR ---
MS RN NOTES PATIENT A/OX3. NO DISTRESS OR SOB. ALL PATIENT NEEDS HAVE BEEN MET THROUGHOUT SHIFT. IV PATENT AND INTACT. CALL LIGHT WITHIN REACH. WILL ENDORSE TO PM SHIFT.
[2017-05-22 20:00] VITALS: BP 114/73
--- NOTE | 2017-05-22 20:00 | NUR ---
MS/RN PATIENT IS AWAKE, ALERT, ORIENTED, COMFORTABLE, NO C/O PAIN, NO DISTRESS NOTED. IV MACHINE KEEPS BEEPING, IV SITE IS IN THE LEFT AC AND PATIENT UNABLE KEEP ARM STRAIGHT. INSERTED NEW IV AT LEFT HAND. WILL MONITOR.
[2017-05-22] MEDS: IV D5/0.45 NACL 1,000 ML IV PRN (21:25)
[2017-05-22] MEDS: SENNOSIDES 8.6 MG TABLET PO SCH (21:25)
[2017-05-22] MEDS: SERTRALINE HCL 50 MG TABLET PO SCH (21:26)
--- NOTE | 2017-05-23 00:15 | NUR ---
MS/RN PATIENT IS SLEEPING AT THIS TIME, EASILY AROUSABLE, APPEAR COMFORTABLE, NO SIGNS OF DISTRESS NOTED, CALL LIGHT IN REACH. WILL CONTINUE TO MONITOR.
--- NOTE | 2017-05-23 06:50 | NUR ---
MS/RN PATIENT APPEAR SLEEPING, APPEAR COMFORTABLE, NO SIGNS OF DISTRESS NOTED. ALL NEEDS ATTENDED AT THIS TIME. WILL CONTINUE TO MONITOR.
[2017-05-23 08:00] VITALS: BP 137/82
--- NOTE | 2017-05-23 08:00 | NUR ---
MS RN NOTES RECEIVED REPORT WITH PATIENT IN STABLE CONDITION. RESTING COMFORTABLY IN BED. PATIENT IS A/OX4. NO S/S OF SOB OR DISTRESS. IV IS PATENT AND INTACT, CALL LIGHT IS WITHIN REACH. SAFETY MEASURES IMPLEMENTED. WILL CONTINUE TO MONITOR THROUGHOUT SHIFT.
[2017-05-23] MEDS: HYDROCHLOROTHIAZIDE 25 MG TABLET PO SCH (09:50)
[2017-05-23] MEDS: DOCUSATE SODIUM 100 MG CAPSULE PO SCH ×2 (09:50→17:20)
[2017-05-23] MEDS: POTASSIUM CHLORIDE 20 MEQ TAB.PRT.SR PO SCH (09:50)
[2017-05-23] MEDS: hydrALAZINE HCL 25 MG TABLET PO SCH ×2 (09:51→17:20)
[2017-05-23] MEDS: LOSARTAN POTASSIUM 50 MG TABLET PO SCH ×2 (09:51→17:20)
[2017-05-23] MEDS: AMLODIPINE BESYLATE 10 MG TABLET PO SCH (09:51)
[2017-05-23] MEDS: risperiDONE 0.25 MG TABLET PO SCH ×2 (09:51→21:43)
[2017-05-23] MEDS ORDERED: CEPHALEXIN MONOHYDRATE 250 MG CAPSULE PO SCH (12:00)
[2017-05-23] MEDS: CEPHALEXIN MONOHYDRATE 250 MG CAPSULE PO SCH ×2 (12:19→23:50)
[2017-05-23] MEDS: IV D5/0.45 NACL 1,000 ML IV PRN (12:25)
[2017-05-23 12:48] LABS: POTASSIUM 3.3 mmol/L (3.5-5.1)
[2017-05-23 13:05] LABS: THYROID STIMULATING HORMONE 1.157 uIU/mL (0.358-3.74)
--- NOTE | 2017-05-23 14:31 | NUR ---
Social service consult requested by Dr. Sue for past history of suicide 20 years ago. Pt. was admitted to [facility] from [facility] due to Acute renal Failure. SW met with pt. bedside. Pt. is alert and oriented x2. Pt. appeared to have restricted speech and was whispering his answers when SW was asking him questions. Pt. denies suicidal and homicidal ideations and visual/auditory hallucinations at this time. When SW inquired with pt. if he has had previous psychiatric hospitalizations, pt denied. SW looked at pt's previous admission history and pt. was admitted to the geropsych unit at [facility] in March 2017. Pt. appears confused. Pt's emergency contact is his sister Aubrey Camejo . Pt. states that he uses a walker at times to ambulate. Pt. was evaluated by psychiatrist Dr. Zhang and once pt. is medically cleared, Dr. Zhang will reevaluate pt. for possible admission to the geropsych unit if deemed appropriate.
[2017-05-23 16:00] VITALS: BP 112/71
--- NOTE | 2017-05-23 18:13 | NUR ---
MS RN NOTES PATIENT SEEN AND EVALUATED BY NANO, RN, CRISIS TEAM. NANO STATED THAT THE PATIENT DOES NOT NEED TO BE HELD AND DOES NOT QUALIFY FOR GPS AND THAT IT WILL BE BETTER TO FIND A SNF PLACEMENT FOR HIM. ANSLEY, CASE MANAGEMENT NOTIFIED. DR. OLYA CHURCHILL, AWAITING RESPONSE. WILL CONTINUE TO MONITOR
--- NOTE | 2017-05-23 18:22 | NUR ---
MS RN NOTES DR. DOBSON PAGED AND AWARE OF PATIENT SITUATION AND THAT PATIENT WON'T BE DISCHARGED TO GPS.
--- NOTE | 2017-05-23 18:53 | NUR ---
MS RN NOTES PATIENT A/OX2, NO S/S OF SOB OR DISTRESS. IV PATENT AND INTACT. ALL PATIENT NEEDS HAVE BEEN MET. BED IS IN LOW, LOCKED POSITION. CALL LIGHT WITHIN REACH. WILL ENDORSE CARE TO PM SHIFT.
--- NOTE | 2017-05-23 19:45 | NUR ---
MS/GEOPHYSICAL PROSPECTING SURVEYOR; RECEIVED PT. IN BED AWAKE, ALERT AND VERBALLY RESPONSIVE. BREATHING NON LABORED. IVF ON PROGRESS. DENIES PAIN. WITH OCC. DRY COUGH. BED ON LOWER POSITION AND LOCKED FOR SAFETY. SIDE RAILS ARE UP FOR SAFETY. WILL CONTINUE TO MONITOR. CALL LIGHT WITHIN REACH.
[2017-05-23 20:00] VITALS: BP 111/78
[2017-05-23] MEDS: SENNOSIDES 8.6 MG TABLET PO SCH (22:07)
[2017-05-23] MEDS: SERTRALINE HCL 50 MG TABLET PO SCH (22:08)
[2017-05-24] MEDS: IV D5/0.45 NACL 1,000 ML IV PRN ×2 (01:32→18:43)
--- NOTE | 2017-05-24 07:00 | NUR ---
MS/WEIGHT CONTROL LECTURER; SLEPT FAIRLY. AM CARE DONE BY THE GASOLINE TRUCK OPERATOR. IVF ON PROGRESS. WILL ENDORSE TO THE DAY SHIFT NURSE.
--- NOTE | 2017-05-24 07:30 | NUR ---
AM RN NOTE Received patient sleeping comfortably in his bed, no acute distress noted. Resp even and non-labored. IV site intact and patent. Will continue to monitor.
[2017-05-24 08:00] VITALS: BP 132/79
[2017-05-24] MEDS: risperiDONE 0.25 MG TABLET PO SCH ×2 (08:46→20:54)
[2017-05-24] MEDS: POTASSIUM CHLORIDE 20 MEQ TAB.PRT.SR PO SCH (08:46)
[2017-05-24] MEDS: DOCUSATE SODIUM 100 MG CAPSULE PO SCH ×2 (08:46→17:13)
[2017-05-24] MEDS: LOSARTAN POTASSIUM 50 MG TABLET PO SCH ×2 (08:46→17:13)
[2017-05-24] MEDS: hydrALAZINE HCL 25 MG TABLET PO SCH ×2 (08:47→17:14)
[2017-05-24] MEDS: HYDROCHLOROTHIAZIDE 25 MG TABLET PO SCH (08:47)
[2017-05-24] MEDS: AMLODIPINE BESYLATE 10 MG TABLET PO SCH (08:47)
[2017-05-24] MEDS: CEPHALEXIN MONOHYDRATE 250 MG CAPSULE PO SCH (12:00)
[2017-05-24 16:00] VITALS: BP 115/64
[2017-05-24 17:14] VITALS: BP 101/64
--- NOTE | 2017-05-24 18:31 | NUR ---
AM RN NOTE Patient resting in his bed, no acute distress noted. Will endorse care to next shift.
--- NOTE | 2017-05-24 19:23 | NUR ---
AM RN NOTE LEVON Foss) notified that patient will be going to [facility] today and picker tender helper time by ambulance 8:30 pm. Called [facility] spoke with Mercedes to give report on patient. Per Mercedes, they are not expecting any admission from [facility]. LEVON (Juanis) and Beti made aware. Ongoing RN also made aware.
--- NOTE | 2017-05-24 19:40 | NUR ---
MS RN NOTE: PATIENT RESTING IN BED, NO ACUTE DISTRESS NOTED. BREATHING EVEN AND UNLABORED, NO SOB NOTED. PATIENT TO BE DISCHARGED TONIGHT TO [facility]. SPOKE TO [facility]BAR[facility] SMITH AND SPOKE TO FACILITY AND PATIENT WILL BE GOING TONIGHT. WILL CALL FACILITY AND GET DISCHARGE PAPERWORK READY. BED LOCKED AND IN LOWEST POSITION, CALL LIGHT IN REACH. WILL CONTINUE TO MONITOR.
[2017-05-24] MEDS: SENNOSIDES 8.6 MG TABLET PO SCH (21:13)
[2017-05-24] MEDS: SERTRALINE HCL 50 MG TABLET PO SCH (21:14)
--- NOTE | 2017-05-24 21:45 | NUR ---
MS RN NOTE: PATIENT PICKED BY EMT, REPORT GIVEN TO EMT, DISCHARGE PAPERWORK WITH EMT. IV TO LFA REMOVED, COVERED WITH GAUZE, PRESSURE APPLIED AND SECURED WITH TAPE. PHOTO OF RIGHT WRIST WOUND TAKEN AND FILED. BELONGINGS LIST CHECKED AND WITH EMT. REPORT ALREADY GIVEN TO STALIN AT [facility]. PATIENT RECEIVED RISPERDAL 0.5MG AND ZOLOFT 100MG ORDERED BEFORE LEAVING. VITAL SIGNS STABLE, PATIENT OFF FLOOR IN STABLE CONDITION.
== END 2017-05-24 21:45 | DRG 689 ==
LOC: ER 17:13 → MED 19:45
PROVIDERS: ADMIT Internal Medicine; ATTEND Internal Medicine
DX: N39.0 Urinary tract infection, site not specified (principal); N17.0 Acute kidney failure with tubular necrosis; G93.40 Encephalopathy, unspecified; F33.3 Major depressive disorder, recurrent, severe with psychotic symptoms; E87.5 Hyperkalemia; E83.42 Hypomagnesemia; E86.9 Volume depletion, unspecified; E87.6 Hypokalemia; I10 Essential (primary) hypertension; F41.9 Anxiety disorder, unspecified; Z90.49 Acquired absence of other specified parts of digestive tract; S61.512D Laceration without foreign body of left wrist, subsequent encounter; X78.9XXD Intentional self-harm by unspecified sharp object, subsequent encounter; S61.511D Laceration without foreign body of right wrist, subsequent encounter; Y92.129 Unspecified place in nursing home as the place of occurrence of the external cause; F03.90 Unspecified dementia, unspecified severity, without behavioral disturbance, psychotic disturbance, mood disturbance, and anxiety
CPT/HCPCS: 36415; 71010-TC; 80048-TC; 80053-TC; 80061-TC; 80076-TC; 81000-TC; 82550-TC; 83735-TC; 84100-TC; 84132-TC; 84443-TC; 85025-TC; 85730-TC; 87081-TC; 87086-TC; 87186-TC; 97001-TC; 97116-TC; 97530-TC; A4606; A6402; J0696; J3475; J3480; J3490; J7030; J7060; Z7610

== ENCOUNTER 2018-07-04 12:21 | Inpatient (IN) | payer MEDICARE ==
[~2018-07-04] VITALS: Ht 177.8 cm; Wt 75.7 kg
[~2018-07-04 12:21] MED LIST: ACET-868 PO; AMLO10TA6 PO; BISA-79 PO; DOCU-141 PO; HYDR-4076 PO; HYDR25TA4 PO; LORA0.5T PO; LOSA50TA21 PO; MAGN2400 PO; MAGN400O6 PO; RISP0.5T5 PO; SENN-167 PO; SERT100T PO; TEMA15CA PO
--- NOTE | 2018-07-04 12:30 | NUR ---
PRESENTS TO ER FOR MEDICAL CLEARANCE PRIOR TO ADMISSION TO GER PSYCH FOR DEPRESSION. PATIENT IS A/OX 2, BREATHING EVEN AND UNLABORED. NO SOB, NAD, VITALS STABLE. SAFETY AND COMFORT MEASURES IN PLACE. AWAITING MD ORDERS.
[2018-07-04] MEDS ORDERED: MORP20SO PO (13:06)
[2018-07-04 13:12] LABS: BASOPHILS % (AUTO) 0.4 % (0.0-2.0); EOSINOPHILS % (AUTO) 2.4 % (0.0-6.0); HEMATOCRIT 43 % (39-51); HEMOGLOBIN 14.6 g/dL (13.5-17.5); LYMPHOCYTES # (AUTO) 1.1 /CMM (0.8-4.8); LYMPHOCYTES % (AUTO) 14.2 % (20.0-44.0); MEAN CORPUSCULAR HGB CONC 34 g/dl (31.0-36.0); MEAN CORPUSCULAR VOLUME 90 fL (80-96); MONOCYTES # (AUTO) 0.3 /CMM (0.1-1.30); MONOCYTES % (AUTO) 4.5 % (2.0-12.0); NEUTROPHILS % (AUTO) 78.5 % (43.0-81.0); PLATELET COUNT (AUTO) 263 /CMM (150-450); RDW COEFFICIENT OF VARIATION 13.4 (11.5-15.0); WHITE BLOOD COUNT (AUTO) 7.6 K/uL (4.3-11.0)
[2018-07-04 13:17] LABS: CALCIUM, SERUM 8.9 mg/dL (8.5-10.1); CARBON DIOXIDE 30 mmol/L (21-32); CHLORIDE 108 mmol/L (98-107); CREATININE 1.2 mg/dL (0.6-1.3); GLUCOSE 79 mg/dL (74-106); POTASSIUM 3.7 mmol/L (3.5-5.1); SODIUM SERUM 140 mmol/L (136-145); UREA NITROGEN, BLOOD 26 mg/dL (7-18)
[2018-07-04 13:31] LABS: ALANINE AMINOTRANSFERASE 30 U/L (12-78); ALBUMIN 3.5 g/dL (3.4-5.0); ALKALINE PHOSPHATASE 78 U/L (46-116); ASPARTATE AMINOTRANSFERASE 18 U/L (15-37); BILIRUBIN,DIRECT 0.2 mg/dL (0.0-0.2)
[2018-07-04 13:32] LABS: SALICYLATE < 2.8 mg/dL (2.8-20.0)
--- NOTE | 2018-07-04 13:32 | NUR ---
URINE OBTAINED VIA STRAIGHT CATH AND SENT TO LAB.
[2018-07-04 13:33] LABS: ACETAMINOPHEN 0 ug/ml (10-30); ALCOHOL, BLOOD < 3 mg/dL (0-0)
--- NOTE | 2018-07-04 13:39 | NUR ---
CATALOGUE MAKER AT BEDSIDE.
[2018-07-04 13:40] LABS: APPEARANCE,URINE Clear (CLEAR); BILIRUBIN,URINE Negative (NEGATIVE); BLOOD, URINE Large Ery/uL (NEGATIVE); COLOR,URINE Yellow (YELLOW); KETONES,URINE Negative (NEGATIVE); LEUKOCYTE ESTERASE ,URINE Trace (NEGATIVE); NITRITE, URINE Positive (NEGATIVE); PH,URINE 5.5 (5.0-8.0); PROTEIN,URINE 30 mg/dl (NEGATIVE); UGLUCOSE Negative (NEGATIVE); UROBILINOGEN,URINE 0.2 EU/dL (0.2)
[2018-07-04 13:48] LABS: BACTERIA,URINE Few /HPF (None Seen); SQUAMOUS EPITHELIAL CELL,UR Few /HPF (None Seen)
--- NOTE | 2018-07-04 14:48 | NUR ---
BED 211A
--- NOTE | 2018-07-04 15:36 | NUR ---
REPORT GIVEN TO BONI GTZ FOR PINO UPON ADMISSION.
--- NOTE | 2018-07-04 16:04 | NUR ---
PATIENT TRANSPORTED TO [facility] VIA STRETCHER FOR ADMISSION TO GPS. RN, BONI TO PROVIDE PINO.
[2018-07-04 16:30] VITALS: BP 185/129
[2018-07-04] MEDS ORDERED: MAGNESIUM HYDROXIDE 30 ML UDC PO PRN (16:30)
[2018-07-04] MEDS ORDERED: clonazePAM 0.5 MG TABLET PO PRN (16:30)
[2018-07-04] MEDS ORDERED: MAG HYDROX/AL HYDROX/SIMETH 30 ML UDC PO PRN (16:30)
[2018-07-04] MEDS ORDERED: ACETAMINOPHEN 325 MG TABLET PO PRN (16:30)
[2018-07-04 17:49] VITALS: BP 162/105
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
[2018-07-04] MEDS: AMLODIPINE BESYLATE 5 MG TABLET PO SCH (18:00)
[2018-07-04] MEDS: CEPHALEXIN MONOHYDRATE 500 MG CAPSULE PO SCH (18:00)
--- NOTE | 2018-07-04 18:23 | NUR ---
PT. REFUSED FOR KEFLEX AND NORVASC. EXPLAINED ON THE IMPORTANCE AND THE RISK OF NOT TAKING MEDS AND PT. STILL REFUSING AND SAID HE RATHER HAVE STROKE AND . MEDICAL DOCTOR NOTIFIED.
[2018-07-04 20:00] VITALS: BP 150/98
--- NOTE | 2018-07-05 00:20 | NUR ---
PT. REFUSED KEFLEX. OFFER 3X. EXPLAINED ON THE IMPORTANCE AND RISK OF NOT TAKING HIS MEDS. PT STILL REFUSED. PT STATED "I DON'T NEED IT". WILL ENDORSE TO NEXT SHIFT NURSE FOR PINO.
[2018-07-05] MEDS: CEPHALEXIN MONOHYDRATE 500 MG CAPSULE PO SCH ×4 (06:00→17:08)
[2018-07-05 07:49] LABS: ALBUMIN 3.3 g/dL (3.4-5.0); BILIRUBIN,TOTAL 1.4 mg/dL (0.2-1.0); CALCIUM, SERUM 8.9 mg/dL (8.5-10.1); POTASSIUM 3.6 mmol/L (3.5-5.1); TOTAL PROTEIN, SERUM 6.7 g/dL (6.4-8.2)
[2018-07-05 08:00] VITALS: BP_SYST 166; BP_DIAS 100; BP_DIAS 117
[2018-07-05] MEDS: AMLODIPINE BESYLATE 5 MG TABLET PO SCH ×2 (09:00→17:08)
--- NOTE | 2018-07-05 10:05 | NUR ---
GPS/RN-NOTES PATIENT REFUSED HIS BP MEDICATION DESPITE EXPLANTION OF THE RISK AND BENEFITS. STATED" IT'S OK,I'M OK I DON'T WANT IT". OFFERED X3 BUT PATIENT GETS IRRITATED AND ANGRY.CHARGE NURSE AWARE.
[2018-07-05] MEDS: SERTRALINE HCL 50 MG TABLET PO SCH (11:00)
[2018-07-05] MEDS: risperiDONE 1 MG TABLET PO SCH ×2 (11:00→17:08)
--- NOTE | 2018-07-05 12:13 | NUR ---
GPS/RN-NOTES PATIENT REFUSED ALL MEDICATIONS DUE. STATED" I WILL NEVER TAKE ANY MEDICATIONS BECAUSE I DON'T NEED IT". OFFERED X3.
[2018-07-05] MEDS: ASPIRIN 81 MG TAB.CHEW PO SCH (15:11)
[2018-07-05 16:00] VITALS: BP 163/97
--- NOTE | 2018-07-05 17:53 | NUR ---
GPS/RN-NOTES RE EDUCATE PATIENT REGARDING REPOSITIONING Q 2HR TO PREVENT SKIN BREAKDOWN. PATIENT NEEDS ENCOURAGEMENT AND NEED HELP ON REPOSITIONING. ALL NEEDS ATTENDED AND ANTICIPATED. KEEP CLEAN AND DRY AT ALL TIMES.
[2018-07-05 18:50] VITALS: BP 143/94
[2018-07-05 20:00] VITALS: BP 141/98
--- NOTE | 2018-07-06 00:03 | NUR ---
PT. REFUSED KEFLEX. OFFER 3X. EXPLAINED ON THE IMPORTANCE AND RISK OF NOT TAKING HIS MEDS. PT STILL REFUSED. PT STATED "I DON'T NEED IT". WILL ENDORSE TO NEXT SHIFT NURSE FOR PINO. CHARGE NURSE AWARE.
[2018-07-06] MEDS: CEPHALEXIN MONOHYDRATE 500 MG CAPSULE PO SCH ×3 (05:47→11:51)
[2018-07-06 07:55] LABS: BASOPHILS % (AUTO) 0.3 % (0.0-2.0); EOSINOPHILS % (AUTO) 2.6 % (0.0-6.0); HEMATOCRIT 42 % (39-51); HEMOGLOBIN 13.9 g/dL (13.5-17.5); LYMPHOCYTES % (AUTO) 11.4 % (20.0-44.0); MEAN CORPUSCULAR HGB CONC 33 g/dl (31.0-36.0); MEAN CORPUSCULAR VOLUME 93 fL (80-96); MONOCYTES # (AUTO) 0.4 /CMM (0.1-1.30); MONOCYTES % (AUTO) 4.4 % (2.0-12.0); NEUTROPHILS # (AUTO) 7.2 /CMM (1.8-8.9); NEUTROPHILS % (AUTO) 81.3 % (43.0-81.0); PLATELET COUNT (AUTO) 228 /CMM (150-450); RDW COEFFICIENT OF VARIATION 13.7 (11.5-15.0); RED BLOOD CELL COUNT(AUTO) 4.55 MIL/uL (4.5-6.0); WHITE BLOOD COUNT (AUTO) 8.8 K/uL (4.3-11.0)
[2018-07-06 08:00] VITALS: BP 140/100
[2018-07-06 08:17] LABS: CALCIUM, SERUM 8.6 mg/dL (8.5-10.1); CREATININE 1.1 mg/dL (0.6-1.3); MAGNESIUM 1.7 mg/dL (1.8-2.4); PHOSPHORUS 3.4 mg/dL (2.5-4.9); POTASSIUM 3.6 mmol/L (3.5-5.1)
[2018-07-06] MEDS: ASPIRIN 81 MG TAB.CHEW PO SCH (09:27)
[2018-07-06] MEDS: AMLODIPINE BESYLATE 5 MG TABLET PO SCH (09:28)
[2018-07-06] MEDS: risperiDONE 1 MG TABLET PO SCH ×2 (09:29→17:21)
[2018-07-06] MEDS: SERTRALINE HCL 50 MG TABLET PO SCH (09:29)
[2018-07-06] MEDS ORDERED: MAGNESIUM OXIDE 400 MG TABLET PO ONE (10:30)
[2018-07-06 16:00] VITALS: BP 135/95
[2018-07-06 20:17] VITALS: BP 124/76
[2018-07-06] MEDS: NITROFURANTOIN/NITROFURAN MAC 100 MG CAPSULE PO SCH (21:22)
[2018-07-07 08:00] VITALS: BP 121/84
[2018-07-07] MEDS: ASPIRIN 81 MG TAB.CHEW PO SCH (08:50)
[2018-07-07] MEDS: NITROFURANTOIN/NITROFURAN MAC 100 MG CAPSULE PO SCH ×2 (08:51→21:17)
[2018-07-07] MEDS: AMLODIPINE BESYLATE 5 MG TABLET PO SCH (08:51)
[2018-07-07] MEDS: risperiDONE 1 MG TABLET PO SCH ×2 (08:51→16:20)
[2018-07-07] MEDS: SERTRALINE HCL 50 MG TABLET PO SCH (08:51)
--- NOTE | 2018-07-07 09:00 | NUR ---
gps sports trainer: notes pt refused am meds and refused full body assessment. sitter remains at bedside. reality orientation provided prn. will monitor.
--- NOTE | 2018-07-07 11:30 | NUR ---
gps health records technology teacher: notes offered am meds once more, but pt refused once more. reality orientation provided prn.
[2018-07-07] MEDS ORDERED: VITAMINS A AND D 56.7 GM TUBE TP PRN (14:00)
--- NOTE | 2018-07-07 14:25 | NUR ---
gps auxiliary equipment tender: notes offered am meds for the 3rd time once more, but pt refused once more. reality orientation provided prn.
--- NOTE | 2018-07-07 14:58 | NUR ---
GPS DESIGN ENGINEERING SPECIALIST: PSYCH F/U SEEN BY DR. GABRIEL AND PLACE PT ON 14 DAY HOLD. ORDER ACKNOWLEDGED. 14 DAY HOLD COPY GIVEN TO PT.
--- NOTE | 2018-07-07 15:02 | NUR ---
INITIAL DISCHARGE PLAN: Patient will return to [facility] Address: [address], [place] [address] . APOLLO confirmed with Magi foundation coordinator at [facility] who stated pt can return as soon as he is stable for discharge. APOLLO will help form a safe and proper discharge in collaboration with .
[2018-07-07 16:00] VITALS: BP 167/97
--- NOTE | 2018-07-07 19:40 | NUR ---
RN NOTES AWAKE ON BED, BEHAVIOR ACCEPTABLE, COOPERATIVE, MED COMPLIANT. NO AGITATION, FOOLWS INSTRUCTIONS, ABLE TO SHOW BOTH HANDS WHEN ASKED. REPOSITIONED PER COMFORT. INCONTINENT. KEPT DRY AND CLEAN. TO CONTINUE.
[2018-07-07 20:42] VITALS: BP 146/98
--- NOTE | 2018-07-07 22:00 | NUR ---
RN NOTES MED COMPLIANT, OFFERED NOURISHMENT, DECLINED. NO OTHER NEEDS MADE.
--- NOTE | 2018-07-08 02:16 | NUR ---
RN NOTES ASLEEP, APPEARS COMFORTABLE. CLOSELY WATCHED.
--- NOTE | 2018-07-08 06:52 | NUR ---
RN NOTES REMAINS UNCHANGED, SLEEPING OF THIS TIME.
[2018-07-08 08:00] VITALS: BP_SYST 146; BP_SYST 149; BP_DIAS 86; BP_DIAS 97
[2018-07-08] MEDS: risperiDONE 1 MG TABLET PO SCH ×2 (09:08→16:41)
[2018-07-08] MEDS: ASPIRIN 81 MG TAB.CHEW PO SCH (09:08)
[2018-07-08] MEDS: AMLODIPINE BESYLATE 5 MG TABLET PO SCH (09:08)
[2018-07-08] MEDS: SERTRALINE HCL 50 MG TABLET PO SCH (09:08)
[2018-07-08] MEDS: NITROFURANTOIN/NITROFURAN MAC 100 MG CAPSULE PO SCH ×2 (09:08→21:30)
--- NOTE | 2018-07-08 10:13 | NUR ---
WOUND CARE CONSULT: PT FOLLOWED BY PLASTIC SURGERY TEAM FOR WOUND CARE. DEFER TO SURGICAL TEAM FOR WOUND TREATMENT PLAN. WILL SEE PRN.
[2018-07-08 16:00] VITALS: BP 150/99
--- NOTE | 2018-07-08 19:15 | NUR ---
RN NOTES RECEIVED PATIENT AWAKE ON BED. BEHAVIOR ACCEPTABLE, COOPERATIVE. NO AGITATION
[2018-07-08 20:26] VITALS: BP 136/90
--- NOTE | 2018-07-08 21:31 | NUR ---
RN NOTES PATIENT MED COMPLIANT. NO COMPLAINTS OR NEEDS OF THIS TIME
[2018-07-09 08:00] VITALS: BP 155/90
[2018-07-09] MEDS: SERTRALINE HCL 50 MG TABLET PO SCH (09:15)
[2018-07-09] MEDS: risperiDONE 1 MG TABLET PO SCH ×2 (09:15→17:17)
[2018-07-09] MEDS: ASPIRIN 81 MG TAB.CHEW PO SCH (09:16)
[2018-07-09] MEDS: AMLODIPINE BESYLATE 5 MG TABLET PO SCH ×2 (09:16→22:25)
[2018-07-09] MEDS: NITROFURANTOIN/NITROFURAN MAC 100 MG CAPSULE PO SCH ×2 (09:16→22:21)
--- NOTE | 2018-07-09 09:43 | NUR ---
SW attempted to contact pts sister Aubrey Pappas [phone] to discuss discharge plan. APOLLO was unable to leave a message, APOLLO will try to contact again at a later time.
[2018-07-09 16:55] VITALS: BP 150/100
[2018-07-09 20:02] VITALS: BP 168/123
[2018-07-09] MEDS: TEMAZEPAM 7.5 MG CAPSULE PO PRN (22:26)
[2018-07-10 08:00] VITALS: BP 153/95
[2018-07-10] MEDS: SERTRALINE HCL 50 MG TABLET PO SCH (09:00)
[2018-07-10] MEDS: risperiDONE 1 MG TABLET PO SCH ×3 (09:00→17:04)
[2018-07-10] MEDS: AMLODIPINE BESYLATE 5 MG TABLET PO SCH ×2 (09:00→21:34)
[2018-07-10] MEDS: ASPIRIN 81 MG TAB.CHEW PO SCH (09:00)
[2018-07-10] MEDS: NITROFURANTOIN/NITROFURAN MAC 100 MG CAPSULE PO SCH ×2 (09:00→21:33)
--- NOTE | 2018-07-10 09:00 | NUR ---
GPS/RN PATIENT REFUSING ALL A.M. MEDICATIONS X 3, EXPLAINED RISKS AND BENEFITS, DR ZULUAGA AWARE OF BP 153/95, HR 89. WILL CONTINUE TO ENCOURAGE TO COMPLY WITH MD REGIMEN.
--- NOTE | 2018-07-10 11:00 | NUR ---
GPS/RN PATIENT REFUSED SHOWER X 3, EXPLAINED RISKS AND BENEFITS. WILL CONTINUE TO ENCOURAGE TO ALLOW STAFF TO ASSIST WITH CARE.
[2018-07-10 16:00] VITALS: BP 156/95
--- NOTE | 2018-07-10 17:08 | NUR ---
GPS/RN PATIENT REFUSED RISPERDAL 0.5 MG X 3, EXPLAINED RISKS AND BENEFITS, WILL CONTINUE TO ENCOURAGE TO COMPLY WITH MD REGIMEN.
[2018-07-10 20:00] VITALS: BP 164/116
--- NOTE | 2018-07-10 20:00 | NUR ---
BP NOW: 164/116, HR 108, NORVASC 5 MG TAB 1 PO GIVEN. WILL RECHECK BP IN AN HOUR.
[2018-07-10] MEDS: TEMAZEPAM 7.5 MG CAPSULE PO PRN (21:38)
--- NOTE | 2018-07-10 21:38 | NUR ---
TEMAZEPAM 15 MG CAP PO GIVEN FOR INSOMNIA.
[2018-07-11] MEDS: AMLODIPINE BESYLATE 5 MG TABLET PO SCH ×2 (06:30→21:31)
--- NOTE | 2018-07-11 06:30 | NUR ---
BP NOW: 163/114, HR 77. EARLY DOSE OF AMLODIPINE 5 MG TAB PO GIVEN. DAMARIS BARLOW FOR PRN ORDER
[2018-07-11 06:32] VITALS: BP 168/114
--- NOTE | 2018-07-11 06:42 | NUR ---
PAGED DR. DOBSON, RE: PRN BP MEDS, SAID FOLLOW-UP TODAY MORNING.
[2018-07-11 08:00] VITALS: BP 153/98
[2018-07-11] MEDS: NITROFURANTOIN/NITROFURAN MAC 100 MG CAPSULE PO SCH ×2 (09:33→21:31)
[2018-07-11] MEDS: risperiDONE 1 MG TABLET PO SCH ×2 (09:33→17:59)
[2018-07-11] MEDS: SERTRALINE HCL 50 MG TABLET PO SCH (09:33)
[2018-07-11] MEDS: ASPIRIN 81 MG TAB.CHEW PO SCH (09:33)
[2018-07-11] MEDS: Z GUARD REMEDY 2 OZ OINT TP SCH (09:34)
[2018-07-11 16:00] VITALS: BP 140/88
[2018-07-11 20:00] VITALS: BP 146/81
[2018-07-11] MEDS: TEMAZEPAM 7.5 MG CAPSULE PO PRN (21:32)
[2018-07-12 08:00] VITALS: BP 136/96
[2018-07-12] MEDS: ASPIRIN 81 MG TAB.CHEW PO SCH (08:59)
[2018-07-12] MEDS: risperiDONE 1 MG TABLET PO SCH ×2 (08:59→17:28)
[2018-07-12] MEDS: SERTRALINE HCL 50 MG TABLET PO SCH (08:59)
[2018-07-12] MEDS: NITROFURANTOIN/NITROFURAN MAC 100 MG CAPSULE PO SCH ×2 (08:59→21:36)
[2018-07-12] MEDS: AMLODIPINE BESYLATE 5 MG TABLET PO SCH ×2 (08:59→21:36)
[2018-07-12] MEDS: Z GUARD REMEDY 2 OZ OINT TP SCH (09:00)
[2018-07-12 16:05] VITALS: BP 137/90
[2018-07-12 20:00] VITALS: BP 134/90
[2018-07-12] MEDS: TEMAZEPAM 7.5 MG CAPSULE PO PRN (21:36)
[2018-07-13 08:00] VITALS: BP 119/87
[2018-07-13] MEDS: risperiDONE 1 MG TABLET PO SCH ×2 (08:37→16:10)
[2018-07-13] MEDS: SERTRALINE HCL 50 MG TABLET PO SCH (08:37)
[2018-07-13] MEDS: ASPIRIN 81 MG TAB.CHEW PO SCH (08:37)
[2018-07-13] MEDS: Z GUARD REMEDY 2 OZ OINT TP SCH (08:38)
[2018-07-13] MEDS: AMLODIPINE BESYLATE 5 MG TABLET PO SCH ×2 (08:38→21:10)
[2018-07-13] MEDS: NITROFURANTOIN/NITROFURAN MAC 100 MG CAPSULE PO SCH ×2 (11:20→21:10)
[2018-07-13 16:00] VITALS: BP 138/90
[2018-07-13 20:10] VITALS: BP 144/96
[2018-07-14 08:00] VITALS: BP 145/83
[2018-07-14 08:13] VITALS: BP 145/83
[2018-07-14] MEDS: AMLODIPINE BESYLATE 5 MG TABLET PO SCH (08:13)
[2018-07-14] MEDS: SERTRALINE HCL 50 MG TABLET PO SCH (08:13)
[2018-07-14] MEDS: risperiDONE 1 MG TABLET PO SCH (08:14)
[2018-07-14] MEDS: ASPIRIN 81 MG TAB.CHEW PO SCH (08:14)
[2018-07-14] MEDS: Z GUARD REMEDY 2 OZ OINT TP SCH (08:14)
[2018-07-14] MEDS: NITROFURANTOIN/NITROFURAN MAC 100 MG CAPSULE PO SCH (08:14)
--- NOTE | 2018-07-14 09:37 | NUR ---
APOLLO attempted to contact pts sister Aubrey Pappas [phone] to inform her pt will be discharging on this present day. APOLLO was unable to leave a message.
--- NOTE | 2018-07-14 12:41 | NUR ---
GPS STRADDLE BUG DRIVER: PT DISCHARGE TO [facility] VIA PRIVATE VEHICLE BY FACILITY . PT IN STABLE CONDITION NO S/S DISTRESS NOTED VSS, PT DENIES SI/HI , COMPLIANT WITH MEDICATIONS AND TX. PT DENIES PAIN OR ANY DISCOMFORT, ALL BELONGINGS RETURNED TO PT. DR GABRIEL AND DR PASCUAL MIRZA NOTIFIED AND AGREED FOR DISCHARGE EXIT CARE DONE PRINTED PA UNABLE TO SIGN SKIN CHECKED PICTURES IN THE CHART. REPORT GIVEN FOR FACILITY RN.
--- NOTE | 2018-07-14 13:36 | NUR ---
DISCHARGE NOTE: Pt was discharged at [address] [facility]) [address] [place] [address] via private vehicle transported by facility. Magi financial coordinator was notified [phone]. also attempted to notify pts sister Aubrey [phone]. Pts mood was happy with congruent affect. Pt denied suicidal/homicidal ideations and denied visual/auditory hallucinations. Pt will be under the care of Combination Presser: Dr. Pedro Luis Camargo [address] [facility] [address], [place] [address] [phone] and Psychiatrist: Dr. Yumiko Orosco [address] [place] [address] [address], [place] [id number] . The multidisciplinary exitcare form was done, printed, signed, and given to the patient.
== END 2018-07-14 12:30 | DRG 885 ==
LOC: ER 12:27 → GPS 15:47
PROVIDERS: ADMIT Psychiatry & Neurology Psychiatry; ATTEND Nurse Practitioner Acute Care
DX: F33.3 Major depressive disorder, recurrent, severe with psychotic symptoms (principal); G93.41 Metabolic encephalopathy; N39.0 Urinary tract infection, site not specified; I10 Essential (primary) hypertension; F41.9 Anxiety disorder, unspecified; E86.0 Dehydration; S30.810A Abrasion of lower back and pelvis, initial encounter; Y33.XXXA Other specified events, undetermined intent, initial encounter; Y93.9 Activity, unspecified; Y92.129 Unspecified place in nursing home as the place of occurrence of the external cause; L98.8 Other specified disorders of the skin and subcutaneous tissue; Z73.6 Limitation of activities due to disability; B96.89 Other specified bacterial agents as the cause of diseases classified elsewhere; Z66 Do not resuscitate
CPT/HCPCS: 36415; 71045-TC; 80048-TC; 80053-TC; 80061-TC; 80076-TC; 80305; 81000-TC; 82962-TC; 83735-TC; 84100-TC; 85025-TC; 87081-TC; 87086-TC; 87186-TC; 92611-TC; A4606; G0480; Z7610

== ENCOUNTER 2018-12-26 13:18 | Inpatient (IN) | payer MEDICARE, OTHER ==
[~2018-12-26] VITALS: Ht 177.8 cm; Wt 80.7 kg
[~2018-12-26 13:18] MED LIST changes: -AMLO10TA6 PO; -BISA-79 PO; -DOCU-141 PO; -HYDR-4076 PO; -HYDR25TA4 PO; -LOSA50TA21 PO; -MAGN2400 PO; -MAGN400O6 PO; -RISP0.5T5 PO; -SENN-167 PO; -SERT100T PO; -TEMA15CA PO
--- NOTE | 2018-12-26 13:35 | NUR ---
BIB FACILITY STAFF FOR PSYCH AND MEDICAL EVAL. PT STS " I'M HERE COZ I WANT TO ". DENIES HI. AAOX3, VSS. DR. LOPEZ @ BS FOR EVAL. PT CALM & COOPERATIVE. WILL CONT TO MONITOR.
[2018-12-26] MEDS ORDERED: BISA10SU8 RC (14:34)
[2018-12-26] MEDS ORDERED: MAG30ORA PO (14:34)
[2018-12-26] MEDS ORDERED: MAGN400O6 PO (14:34)
[2018-12-26] MEDS ORDERED: SENN-168 PO (14:35)
[2018-12-26] MEDS ORDERED: ASPI-1152 PO (14:35)
[2018-12-26] MEDS ORDERED: SERT50TA PO (14:35)
[2018-12-26] MEDS ORDERED: AMLO5TAB4 PO (14:35)
[2018-12-26] MEDS ORDERED: ACET650S13 RC (14:35)
[2018-12-26 14:40] LABS: BASOPHILS # (AUTO) 0.1 /CMM (0.0-0.2); BASOPHILS % (AUTO) 0.6 % (0.0-2.0); EOSINOPHILS % (AUTO) 1.9 % (0.0-6.0); HEMATOCRIT 46 % (39-51); HEMOGLOBIN 15.7 g/dL (13.5-17.5); LYMPHOCYTES # (AUTO) 1.2 /CMM (0.8-4.8); LYMPHOCYTES % (AUTO) 12.3 % (20.0-44.0); MEAN CORPUSCULAR HGB CONC 34 g/dl (31.0-36.0); MEAN CORPUSCULAR VOLUME 91 fL (80-96); MONOCYTES # (AUTO) 0.4 /CMM (0.1-1.30); MONOCYTES % (AUTO) 4.2 % (2.0-12.0); NEUTROPHILS # (AUTO) 8.1 /CMM (1.8-8.9); PLATELET COUNT (AUTO) 293 /CMM (150-450); RED BLOOD CELL COUNT(AUTO) 5.05 MIL/uL (4.5-6.0)
[2018-12-26 14:53] LABS: CALCIUM, SERUM 9.5 mg/dL (8.5-10.1); CARBON DIOXIDE 31 mmol/L (21-32); CHLORIDE 106 mmol/L (98-107); CREATININE 1.2 mg/dL (0.6-1.3); GLUCOSE 104 mg/dL (74-106); POTASSIUM 3.8 mmol/L (3.5-5.1); SODIUM SERUM 142 mmol/L (136-145); UREA NITROGEN, BLOOD 26 mg/dL (7-18)
[2018-12-26 15:00] LABS: ACETAMINOPHEN 0 ug/ml (10-30); ALANINE AMINOTRANSFERASE 36 U/L (12-78); ALCOHOL, BLOOD < 3 mg/dL (0-0); ALKALINE PHOSPHATASE 77 U/L (46-116); ASPARTATE AMINOTRANSFERASE 19 U/L (15-37); BILIRUBIN,DIRECT 0.2 mg/dL (0.0-0.2); SALICYLATE 0.5 mg/dL (2.8-20.0); TOTAL PROTEIN, SERUM 7.7 g/dL (6.4-8.2)
--- NOTE | 2018-12-26 15:19 | NUR ---
NAVY SEAL VERTICAL LATHE OPERATOR NOTIFIED ABOUT EVALUATION
--- NOTE | 2018-12-26 16:00 | NUR ---
ART FIELD SERVICES ANALYST @ BS FOR EVAL.
--- NOTE | 2018-12-26 16:52 | NUR ---
BED 220 B GIVEN
--- NOTE | 2018-12-26 17:38 | NUR ---
REPORT GIVEN TO BRAVO SANCHEZ AT [facility] FOR CONT OF CARE.
[2018-12-26] MEDS ORDERED: ACETAMINOPHEN 325 MG TABLET PO PRN ×2 (18:00→19:00)
[2018-12-26] MEDS ORDERED: MAG HYDROX/AL HYDROX/SIMETH 30 ML UDC PO PRN ×2 (18:00→19:00)
[2018-12-26] MEDS ORDERED: MAGNESIUM HYDROXIDE 30 ML UDC PO PRN ×2 (18:00→19:00)
[2018-12-26] MEDS ORDERED: clonazePAM 0.5 MG TABLET PO PRN (18:00)
--- NOTE | 2018-12-26 18:04 | NUR ---
RN-CO: DR GABRIEL GAVE ADMITTING ORDERS.
[2018-12-26 18:08] VITALS: BP 156/98
--- NOTE | 2018-12-26 18:26 | NUR ---
RN-CO: 1:1 EVERTTER PROVIDED, PER PATIENT " I WANT TO KILL MYSELF." REFUSED TO PROVIDE MORE INFORMATION.
[2018-12-26] MEDS ORDERED: ACETAMINOPHEN 650 MG/SUPP.RECT RC PRN (19:00)
[2018-12-26] MEDS ORDERED: BISACODYL SUPP (10 MG) 10 MG/SUPP.RECT SUPP.RECT RC PRN (19:00)
--- NOTE | 2018-12-26 19:00 | NUR ---
GPS-NURSING EDUCATOR NOTES: ADMITTED A 68 YR-OLD MALE FROM ER INITIALLY PT. CAME FROM [facility]. ADMITTED ON 5150 FOR DTS/GD. PER HOLD, PATIENT HAS BEEN EXPRESSING A DESIRE TO BOTH YESTERDAY AND TODAY. PATIENT IS DEPRESSED. PATIENT IS ISOLATING HIMSELF IN HIS ROOM. PATIENT REFUSING CARE. PATIENT STATES HE DOES NOT WANT TO LIVE ANYMORE. UPON FACE TO FACE ASSESSMENT, PATIENT IS ALERT, ORIENTED X1, DEPRESSED, UNCOOPERATIVE WITH CARE, EASILY GETS IRRITABLE, CONFUSED, DISORGANIZED. IN NO APPARENT DISTRESS NOTED. NO C/O OF PAIN OR DISCOMFORT. DENIES SI/HI OR HALLUCINATIONS AT THIS TIME. BELONGINGS WERE INVENTORIED AND CHECKED FOR CONTRABAND. PT. IS UNDER THE PSYCHIATRIC CARE OF DR. GABRIEL ORDERS OBTAINED, AND UNDER THE MEDICAL CARE OF DR. LUCAS, NOTIFIED OF THE ADMISSION, MED RECON DONE. SKIN ASSESSMENT DONE. NOTED WITH SACRAL REDNESS, BILATERAL FEET LONG TOENAILS, RASHES TO RIGHT LOWER BACK AND RIGHT BUTTOCK. BED LOCKED AND PLACED ON LOWEST POSITION TO MAINTAIN SAFETY. FALL PRECAUTIONS IMPLEMENTED. WILL CONTINUE TO MONITOR Q15 MINS. FOR SAFETY AND BEHAVIOR.
[2018-12-26 19:05] VITALS: BP 143/98
[2018-12-26] MEDS: SENNOSIDES 8.6 MG TABLET PO SCH (19:56)
[2018-12-26] MEDS: ASPIRIN EC 81 MG TABLET.DR PO SCH (19:56)
[2018-12-26 20:00] VITALS: BP 143/98
[2018-12-26] MEDS: AMLODIPINE BESYLATE 5 MG TABLET PO SCH (20:02)
[2018-12-26] MEDS: TEMAZEPAM 7.5 MG CAPSULE PO PRN (22:15)
[2018-12-27] MEDS: Z GUARD REMEDY 2 OZ OINT TP SCH ×3 (00:32→21:12)
--- NOTE | 2018-12-27 06:30 | NUR ---
GPS-RN NOTES: TRIED TO CALL PT'S SISTER ALEC WOLF ([phone]) PHONE WAS KEPT ON RINGING UNABLE TO LEAVE MESSAGES.
[2018-12-27 07:39] LABS: ALBUMIN 3.6 g/dL (3.4-5.0); BILIRUBIN,TOTAL 0.9 mg/dL (0.2-1.0); CREATININE 1.1 mg/dL (0.6-1.3); POTASSIUM 3.6 mmol/L (3.5-5.1); TOTAL PROTEIN, SERUM 6.8 g/dL (6.4-8.2)
[2018-12-27 08:00] VITALS: BP 115/78
[2018-12-27] MEDS: ASPIRIN EC 81 MG TABLET.DR PO SCH (08:40)
[2018-12-27] MEDS: SENNOSIDES 8.6 MG TABLET PO SCH (08:40)
[2018-12-27] MEDS: AMLODIPINE BESYLATE 5 MG TABLET PO SCH ×2 (08:41→21:00)
[2018-12-27] MEDS: SERTRALINE HCL 50 MG TABLET PO SCH (08:42)
[2018-12-27 16:00] VITALS: BP 106/73
[2018-12-27 20:00] VITALS: BP 135/76
[2018-12-27] MEDS: TEMAZEPAM 7.5 MG CAPSULE PO PRN (21:30)
[2018-12-28 08:00] VITALS: BP 116/90
[2018-12-28] MEDS: SERTRALINE HCL 50 MG TABLET PO SCH (09:21)
[2018-12-28] MEDS: ASPIRIN EC 81 MG TABLET.DR PO SCH (09:22)
[2018-12-28] MEDS: SENNOSIDES 8.6 MG TABLET PO SCH (09:22)
[2018-12-28] MEDS: AMLODIPINE BESYLATE 5 MG TABLET PO SCH ×2 (09:22→20:27)
[2018-12-28] MEDS: Z GUARD REMEDY 2 OZ OINT TP SCH ×2 (09:23→20:30)
[2018-12-28] MEDS ORDERED: LORAZEPAM INJ 2 MG/ML VIAL IM STA ×2 (13:41→14:06)
[2018-12-28] MEDS ORDERED: diphenhydrAMINE HCL 50 MG/ML VIAL IM STA (13:41)
[2018-12-28] MEDS ORDERED: HALOPERIDOL LACTATE INJ 5 MG/ML VIAL IM STA (13:41)
[2018-12-28 16:00] VITALS: BP 140/95
--- NOTE | 2018-12-28 18:29 | NUR ---
GPS/RN NOT ABLE TO TURN PT Q2 HRS TODAY DUE PT BEING AGGRESSIVE AND RESISTIVE TO CARE.
[2018-12-28 19:31] VITALS: BP 130/89
[2018-12-28] MEDS: TEMAZEPAM 7.5 MG CAPSULE PO PRN (21:33)
[2018-12-29 08:00] VITALS: BP 134/89
[2018-12-29] MEDS: SENNOSIDES 8.6 MG TABLET PO SCH (08:47)
[2018-12-29] MEDS: ASPIRIN EC 81 MG TABLET.DR PO SCH (08:48)
[2018-12-29] MEDS: AMLODIPINE BESYLATE 5 MG TABLET PO SCH ×2 (08:48→20:08)
[2018-12-29] MEDS: SERTRALINE HCL 50 MG TABLET PO SCH (08:48)
[2018-12-29] MEDS: Z GUARD REMEDY 2 OZ OINT TP SCH ×2 (08:49→20:11)
--- NOTE | 2018-12-29 15:23 | NUR ---
SW called the pt's sister, Aubrey Pappas ([phone]), and left a message on her voicemail stating that the SW would like to discuss the pt's discharge plan.
--- NOTE | 2018-12-29 15:24 | NUR ---
APOLLO contacted Magi ([phone]), exhibits coordinator from [facility], and she stated that the pt is welcome to return once the pt is stable for discharge. APOLLO stated that she would keep her updated.
--- NOTE | 2018-12-29 15:25 | NUR ---
Initial Discharge Plan: Pt currently resides at [facility] located at [address] [facility], [place] [address]; . Per pt, he was unable to determine whether or not he would like to return. APOLLO contacted Magi ([phone]), therapy site coordinator, and she stated that the pt is welcome to return. APOLLO will work with the pt and the MD regarding appropriate discharge planning. SW will form a safe and proper discharge plan.
[2018-12-29 16:00] VITALS: BP 121/81
[2018-12-29 19:46] VITALS: BP 133/89
[2018-12-29] MEDS: TEMAZEPAM 7.5 MG CAPSULE PO PRN (20:18)
[2018-12-29] MEDS: risperiDONE 1 MG TABLET PO SCH (22:00)
[2018-12-30] MEDS: TEMAZEPAM 7.5 MG CAPSULE PO PRN (00:23)
[2018-12-30 08:00] VITALS: BP 141/94
[2018-12-30] MEDS ORDERED: TEMAZEPAM 15 MG CAPSULE PO PRN (08:30)
[2018-12-30] MEDS: SENNOSIDES 8.6 MG TABLET PO SCH (10:29)
[2018-12-30] MEDS: ASPIRIN EC 81 MG TABLET.DR PO SCH (10:29)
[2018-12-30] MEDS: SERTRALINE HCL 50 MG TABLET PO SCH (10:29)
[2018-12-30] MEDS: AMLODIPINE BESYLATE 5 MG TABLET PO SCH ×2 (10:30→21:00)
[2018-12-30] MEDS: Z GUARD REMEDY 2 OZ OINT TP SCH ×2 (10:32→21:26)
[2018-12-30 11:28] LABS: BASOPHILS # (AUTO) 0.1 /CMM (0.0-0.2); BASOPHILS % (AUTO) 0.9 % (0.0-2.0); EOSINOPHILS % (AUTO) 3.5 % (0.0-6.0); HEMATOCRIT 39 % (39-51); HEMOGLOBIN 13.4 g/dL (13.5-17.5); LYMPHOCYTES # (AUTO) 1.1 /CMM (0.8-4.8); LYMPHOCYTES % (AUTO) 16.9 % (20.0-44.0); MEAN CORPUSCULAR HGB CONC 34 g/dl (31.0-36.0); MEAN CORPUSCULAR VOLUME 90 fL (80-96); MONOCYTES # (AUTO) 0.4 /CMM (0.1-1.30); MONOCYTES % (AUTO) 5.5 % (2.0-12.0); NEUTROPHILS % (AUTO) 73.2 % (43.0-81.0); PLATELET COUNT (AUTO) 239 /CMM (150-450); RED BLOOD CELL COUNT(AUTO) 4.32 MIL/uL (4.5-6.0); WHITE BLOOD COUNT (AUTO) 6.8 K/uL (4.3-11.0)
[2018-12-30 11:40] LABS: ALBUMIN 3.4 g/dL (3.4-5.0); CALCIUM, SERUM 8.9 mg/dL (8.5-10.1); CREATININE 1.2 mg/dL (0.6-1.3); POTASSIUM 3.6 mmol/L (3.5-5.1); TOTAL PROTEIN, SERUM 6.6 g/dL (6.4-8.2)
--- NOTE | 2018-12-30 12:01 | NUR ---
APOLLO called the pt's sister, Aubrey Pappas ([phone]), and informed her that the current plan is for the pt to return to [facility] once he is considered stable. APOLLO stated that if the pt continues to refuse his medications, then the psychiatrist will have to file for a [place] hearing to see if the court will allow the pt to receive injections. That way, the pt can become stable and be discharged back to his shelter facility appropriately. Pt's sister was grateful to hear that there is a plan.
[2018-12-30 16:00] VITALS: BP 125/80
--- NOTE | 2018-12-30 18:00 | NUR ---
MED COMPLIANT,COOPERATIVE.VS STABLE.FLAT AFFECT.
[2018-12-30 20:16] VITALS: BP 129/83
--- NOTE | 2018-12-30 21:22 | NUR ---
PATIENT REFUSED MEDICATION AMLODIPINE 5 MG TAB, BP 129/83, HR 70. ENCOURAGED HIM 2X, EXPLAINED THE BENEFITS, PATIENT STATED, " I JUST DON'T WANT TO TAKE THEM."
[2018-12-30] MEDS: risperiDONE 1 MG TABLET PO SCH (22:00)
[2018-12-31 08:00] VITALS: BP 152/65
[2018-12-31] MEDS: SERTRALINE HCL 50 MG TABLET PO SCH (09:07)
[2018-12-31] MEDS: SENNOSIDES 8.6 MG TABLET PO SCH (09:07)
[2018-12-31] MEDS: AMLODIPINE BESYLATE 5 MG TABLET PO SCH ×2 (09:08→21:27)
[2018-12-31] MEDS: ASPIRIN EC 81 MG TABLET.DR PO SCH (09:08)
[2018-12-31] MEDS: Z GUARD REMEDY 2 OZ OINT TP SCH ×2 (09:13→21:27)
--- NOTE | 2018-12-31 15:35 | NUR ---
SW called the pt's sister, Aubrey Pappas ([phone]), and informed her that the psychiatrist and the SW would like to receive more history on the pt. The pt's sister then provided the SW with as much relevant information that she could and the SW will then relay that information to the pt's psychiatrist on the following day.
[2018-12-31 16:00] VITALS: BP 144/85
[2018-12-31 20:22] VITALS: BP 129/70
[2019-01-01 08:00] VITALS: BP 135/82
[2019-01-01] MEDS: SENNOSIDES 8.6 MG TABLET PO SCH (08:10)
[2019-01-01] MEDS: AMLODIPINE BESYLATE 5 MG TABLET PO SCH ×2 (08:10→21:11)
[2019-01-01] MEDS: ASPIRIN EC 81 MG TABLET.DR PO SCH (08:10)
[2019-01-01] MEDS: SERTRALINE HCL 50 MG TABLET PO SCH (08:14)
[2019-01-01] MEDS: Z GUARD REMEDY 2 OZ OINT TP SCH ×2 (10:07→21:16)
[2019-01-01 16:00] VITALS: BP 141/73
[2019-01-01 20:00] VITALS: BP 131/84
--- NOTE | 2019-01-01 21:11 | NUR ---
OFFERED, SLEEPING PILL, PATIENT STATED," I'VE BEEN SLEEPING ALL DAY, NO. "
[2019-01-02 08:00] VITALS: BP 130/81
[2019-01-02] MEDS: Z GUARD REMEDY 2 OZ OINT TP SCH ×2 (09:03→20:39)
[2019-01-02] MEDS: ASPIRIN EC 81 MG TABLET.DR PO SCH (09:03)
[2019-01-02] MEDS: SENNOSIDES 8.6 MG TABLET PO SCH (09:03)
[2019-01-02] MEDS: SERTRALINE HCL 50 MG TABLET PO SCH (09:03)
[2019-01-02] MEDS: AMLODIPINE BESYLATE 5 MG TABLET PO SCH ×2 (09:03→20:39)
--- NOTE | 2019-01-02 14:45 | NUR ---
APOLLO called the pt's sister, Aubrey Pappas ([phone]), and left her a message on her voicemail that informed her that the pt is going to be discharged Saturday late morning to early afternoon.
[2019-01-02 16:00] VITALS: BP 127/76
[2019-01-02 20:00] VITALS: BP 126/83
--- NOTE | 2019-01-03 02:50 | NUR ---
RN NOTES: -UPON ENDORSEMENT AT 1900, HE WAS TAKING A NAP AT SHORT INTERVALS, LYING COMFORTABLY IN BED,NO PAIN OR DISCOMFORT, NO SIGN OF RESPIRATORY DISTRESS, PLEASANT MOOD, SMILING AND COOPERATIVE, HE TOOK ALL HIS MEDICATION, V/S AFEBRILE DIANNA-126/83 SPO2-96%RA. -KEPT ON CLOSE WATCH, ASLEEP MOST OF THE TIME,FALL, SAFETY, ASPIRATION PRECAUTION OBSERVED, BED LOW AND LOCKED,CALLS AND NEEDS ATTENDED.
[2019-01-03 08:00] VITALS: BP 138/74
[2019-01-03] MEDS: SERTRALINE HCL 50 MG TABLET PO SCH (08:45)
[2019-01-03] MEDS: SENNOSIDES 8.6 MG TABLET PO SCH (08:45)
[2019-01-03] MEDS: AMLODIPINE BESYLATE 5 MG TABLET PO SCH ×2 (08:45→21:26)
[2019-01-03] MEDS: ASPIRIN EC 81 MG TABLET.DR PO SCH (08:45)
[2019-01-03] MEDS: Z GUARD REMEDY 2 OZ OINT TP SCH ×2 (09:28→21:26)
[2019-01-03 16:00] VITALS: BP 125/89
[2019-01-03 20:00] VITALS: BP 136/89
[2019-01-04 08:00] VITALS: BP 116/75
[2019-01-04] MEDS: Z GUARD REMEDY 2 OZ OINT TP SCH ×2 (08:45→21:57)
[2019-01-04] MEDS: AMLODIPINE BESYLATE 5 MG TABLET PO SCH ×3 (08:45→21:59)
[2019-01-04] MEDS: ASPIRIN EC 81 MG TABLET.DR PO SCH (08:45)
[2019-01-04] MEDS: SENNOSIDES 8.6 MG TABLET PO SCH (08:46)
[2019-01-04] MEDS: SERTRALINE HCL 50 MG TABLET PO SCH (08:46)
[2019-01-04 16:00] VITALS: BP 119/72
[2019-01-04 20:00] VITALS: BP 125/86
[2019-01-04 20:09] VITALS: BP 125/86
[2019-01-05 08:00] VITALS: BP 146/97
[2019-01-05] MEDS: SERTRALINE HCL 50 MG TABLET PO SCH ×2 (08:36→09:00)
[2019-01-05] MEDS: SENNOSIDES 8.6 MG TABLET PO SCH ×2 (08:36→09:00)
[2019-01-05] MEDS: ASPIRIN EC 81 MG TABLET.DR PO SCH ×2 (08:36→09:00)
[2019-01-05] MEDS: Z GUARD REMEDY 2 OZ OINT TP SCH (08:37)
[2019-01-05] MEDS: AMLODIPINE BESYLATE 5 MG TABLET PO SCH ×2 (08:37→09:00)
[2019-01-05 09:00] VITALS: BP 146/97
--- NOTE | 2019-01-05 10:30 | NUR ---
RN NOTE :HUMAN RESOURCE CONSULTANT REPORTED WHEN CHANGING DIAPER SECOND TOENAIL IN RIGHT FOOT BROKEN , SMALL BLEEDING NOTED AND NOTIFIED ,PT SEEN BY WITH ORDER TO APPLY BAND AID AND AFTER DISXCHARGE IN SHELTER FOLLOW UP WITH SOLUTION DESIGN ENGINEER .
--- NOTE | 2019-01-05 11:10 | NUR ---
APOLLO called the pt's sister, Aubrey Pappas ([phone]), and informed her that the pt will be discharged to [facility] today.
--- NOTE | 2019-01-05 11:45 | NUR ---
MARKETING INTELLIGENCE ANALYST NOTE: Patient alert ,verbally responsive ,denies suicidal ideation ,denies homicidal ideation ,denies auditory visual ideation .,no s/s of distress noted ,follow directions ,no c/o pain at this time ,vs stable .Patient seen by DR. Yassine Griffin called back with discharge orders all orders carried out .report given to nurse in [place] ,patient ,patient discharged with transporter.
--- NOTE | 2019-01-05 16:00 | NUR ---
Discharge Note: Pt was discharged to [facility] ([facility]) located at [address] [place] [address]; ([phone]). The facility otr refrigerated cdl truck driver picked up the pt up around 11am. Pts sister, Aubrey Pappas ([phone]), was notified of this discharge. Upon discharge, the pt appeared to be in a depressed mood and presented with a flat affect. At the time of discharge, the pt refused to speak to the SW but would nod his head to answer yes and would shake his head to answer no. When SW asked if the pt was suicidal and homicidal the pt shook his head for no and when the SW asked about auditory and visual hallucinations, the pt shook his head for no. Pt will be under the care of his intelligence consultant, Dr. Camargo, located at [address] [place] [address]; and his psychiatrist, Dr. Orosco, located at [address] [place] [address] [address], [place] [address]; .
== END 2019-01-05 11:45 | DRG 885 ==
LOC: ER 13:24 → GPS 17:02
PROVIDERS: ADMIT Psychiatry & Neurology Psychiatry; ATTEND Psychiatry & Neurology Psychiatry
DX: F33.2 Major depressive disorder, recurrent severe without psychotic features (principal); N17.9 Acute kidney failure, unspecified; R45.851 Suicidal ideations; M19.90 Unspecified osteoarthritis, unspecified site; I25.10 Atherosclerotic heart disease of native coronary artery without angina pectoris; I10 Essential (primary) hypertension; F41.9 Anxiety disorder, unspecified; L98.8 Other specified disorders of the skin and subcutaneous tissue; R23.3 Spontaneous ecchymoses; R21 Rash and other nonspecific skin eruption; H57.9 Unspecified disorder of eye and adnexa; E86.0 Dehydration; F39 Unspecified mood [affective] disorder; F09 Unspecified mental disorder due to known physiological condition; Z91.14 Patient's other noncompliance with medication regimen
CPT/HCPCS: 36415; 80048-TC; 80053-TC; 80061-TC; 80076-TC; 85025-TC; 87081-TC; G0480; J1200; J1630; J2060